=== PATIENT | male | born 1945 | race Caucasian/White ===

== ENCOUNTER 2017-12-03 05:52 | Inpatient (IN) | payer MEDICARE, OTHER, SELFPAY ==
[2017-12-03] VITALS (17 sets, daily range): BP systolic 126–160; BP diastolic 50–79; PULSE 59–94; RESP 11–18; TEMP 36.6–37; O2SAT 94–99; BMI 26.8; BMI 25.9
--- NOTE | 2017-12-03 05:58 | EKG12_ITS ---
Test Reason : NEURO S/SX Blood Pressure : / mmHG Vent. Rate : 085 BPM Atrial Rate : 085 BPM P-R Int : 272 ms QRS Dur : 106 ms QT Int : 344 ms P-R-T Axes : 074 -03 098 degrees QTc Int : 409 ms Sinus rhythm with 1st degree A-V block ST & T wave abnormality, consider lateral ischemia Abnormal ECG Confirmed by ART LECHUGA, INDY ([id number]), fan mail editor ASHLEY ZHU ([id number]) on 12/04/2017 1:21:59 PM Referred By: SANTOSH Confirmed By:INDY CORDOVA MD
--- NOTE | 2017-12-03 05:58 | CT_ITS ---
STUDY: CT BRAIN WITHOUT CONTRAST REASON FOR EXAM: Male, 71 years old. Right-sided weakness RADIATION DOSAGE (If Supplied By Facility): CTDIvol = ( 44.99 ) mGy, DLP = ( 762.36 ) mGycm TECHNIQUE: Transaxial CT imaging of the brain was performed without administration of intravenous contrast material. Individualized dose optimization techniques were used for this CT. COMPARISON: 12/22/2007 FINDINGS: Normal soft tissue structures. Normal calvarium. Normal size ventricles and extra-axial spaces for the patient's age. Stable left temporal encephalomalacia. Normal basal ganglia and thalami. Normal brainstem. Normal cerebellum. There is no intracranial hemorrhage. There are no findings of an acute ischemic infarction. Normal visualized paranasal sinuses. CT/Brain/Head without Contrast IMPRESSION: No CT evidence of acute infarct or hemorrhage. Comment: If there is clinical concern for hyperacute ischemia that is not yet apparent by CT, MRI should be considered if possible. Electronically Signed: Jean Wetzel MD at 7:49 EST Tel , Service support ,
[2017-12-03 06:06] LABS: Bedside Glucose 108 mg/dL (70-110)
[2017-12-03 06:19] LABS: Absolute Lymphocyte Count 2.15 X10^3/ul (0.83-4.51); Absolute Neutrophil Count 2.8 X10^3/uL (2.0-7.7); Basophil# 0.03 X10^3/uL; Basophil% 0.5 % (0-1); Eosinophil# 0.17 X10^3/uL; Hematocrit 42.2 % (40-54); Hemoglobin 14.6 g/dl (13.0-16.5); Lymphocyte # 2.15 X10^3/ul (4.0); Lymphocyte % 37.8 % (19-41); Mean Corp Hgb Conc 34.6 g/gl (32-36); Mean Corpuscular Volume 83.7 fL (80-94); Mean Platelet Vol. 9.5 fl (6.2-12.0); Monocyte# 0.52 X10^3/uL; Monocyte% 9.1 % (0-10); Neutrophil # 2.81 X10^3/uL (2.7-7.7); Neutrophil % 49.4 % (47-70); Platelet Count 257 K/mm3 (150-450); RBC Distribution Width CV 13.5 % (11.6-14.6); RBC Distribution Width SD 40.8 fl (35.1-43.9); Red Blood Count 5.04 M/mm3 (4.6-6.2); White Blood Count 5.7 K/mm3 (4.4-11.0)
[2017-12-03 06:27] LABS: POSITIVE COUNT NO; POSITIVE DIFFERENTIAL NO; POSITIVE MORPHOLOGY NO
[2017-12-03 06:34] LABS: Anion Gap 8 (5-15); BUN 24 mg/dL (7-18); BUN/Creat Ratio 18.3 RATIO (10-20); Calcium,Total 8.8 mg/dL (8.5-10.1); Chloride 105 mmol/L (98-107); Creatinine, Serum 1.31 mg/dL (0.70-1.30); EST Glomerular Filtration Rate 58 mL/min (>60); Est Glom Filt Rate - Afr Amer 70 mL/min (>60); Estimated Creatinine Clearance 54.95 ml/min; Glucose 105 mg/dL (70-110); Potassium 3.3 mmol/L (3.5-5.1); Sodium Level 139 mmol/L (136-145)
[2017-12-03 06:40] LABS: International Normalized Ratio 1.1; Prothrombin Time (Protime)PT. 13.3 SECONDS (11.7-14.9)
[2017-12-03 06:41] LABS: Partial Thromboplast Time 30.9 Seconds (24.1-36.2)
--- NOTE | 2017-12-03 07:19 | ED.DCSUM_ITS ---
- ER Visit Summary Date of Service: 12/03/17 Chief Complaint: Unable to speak History of Present Illness: The patient is a [address] 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 He was last known well at 9 PM yesterday. Woke up this morning and has an obvious expressive aphasia. He also complains of weakness in his right arm and leg. He denies any headache, chest pain, fever, or other complaints. Physical Examination: Vitals: Stable. Afebrile. General: Well-nourished and well-developed. Head: Normocephalic atraumatic. Neck: Supple, no lymphadenopathy. No JVD. Nontender. Cardiovascular: Regular rate and rhythm. No murmurs. Respiratory: No respiratory distress. Clear to auscultation bilaterally. Abdominal: Soft, nontender, nondistended, normal bowel sounds. No guarding, rebound, or peritoneal signs. Back: Nontender. Extremities: Nontender, no edema. Skin: Normal color, no rash. Neurologic: Obvious expressive age aphasia and weakness in his right arm. He also has paresthesias in his right arm. He has an NIH scale of 4. Psych: Normal affect. Test Results: EKG is sinus with first-degree AV block at 85. Troponin is negative. Coags are normal. Chem-7 is marked potassium 3.3, BUN 24, creatinine 1.31. CBC is normal. CT shows no acute disease. Emergency Department Course and Treatment: Patient is not a TPA candidate due to the timeframe of the onset of this. The weakness in his right arm actually improved while he was here. Treatment Plan: Patient will be discussed with the hospitalist and admitted to the hospital for further evaluation and treatment. Disposition: Admitted in improved condition. Impression: 1. CVA. 2. Renal insufficiency. This note was generated with [employer] dictation software. It may contain incorrect words, spelling, and punctuation that were not noted in review of the chart prior to signing ED Disposition - Plan for ED Patient: Chief Complaint: Neuro S/Sx Referrals: Fly Jay MD [Primary Care Provider] -
--- NOTE | 2017-12-03 09:46 | MRI_ITS ---
STUDY: MRA NECK WITHOUT CONTRAST REASON FOR EXAM: Male, 71 years old. CVA, aphasia, rt sided weakness TECHNIQUE: Source images were obtained, MIPs were performed. The study was performed unenhanced. COMPARISON: None. FINDINGS: RIGHT CAROTID ARTERIES: Normal right common carotid artery (CCA). There is mild atherosclerotic plaque formation with minimal narrowing of the right carotid bulb. There is mild atherosclerotic plaque formation of the origin of the right internal carotid artery with less than 50% cross sectional diameter stenosis. Normal visualized cervical portion of the right internal carotid artery. Normal origin of the right external carotid artery (ECA). LEFT CAROTID ARTERIES: Normal left common carotid artery (CCA). There is mild atherosclerotic plaque formation with minimal narrowing of the left carotid bulb. There is mild atherosclerotic plaque formation of the origin of the left internal carotid artery with less than 50% cross sectional diameter stenosis. Normal visualized cervical portion of the left internal carotid artery. Normal origin of the left external carotid artery (ECA). VERTEBRAL ARTERIES: There is antegrade flow within the bilateral vertebral arteries with a small right vertebral artery, and a dominant left vertebral artery. MRI/MRA Neck without Contrast IMPRESSION: No occlusion or significant stenosis. Mild atherosclerotic plaque. Electronically Signed: Adelita Dale MD at 14:43 EST Tel , Service support ,
--- NOTE | 2017-12-03 09:46 | ECHOD_ITS ---
Reason For Study: TIA/STROKE Procedure This was a 2D Doppler, Color Flow transthoracic echocardiogram. Exam performed portable in patient room. Left Ventricle Normal LV size. Left ventricular systolic function is normal. The estimated ejection fraction is 60 %. No regional wall motion abnormalities noted. Right Ventricle Normal RV size. Normal systolic function. Atria The left atrium is moderately enlarged. Normal right atrium. Prominent eustachian valve. Normal atrial septum. Bubble contrast study negative for right to left interatrial shunt. Mitral Valve Normal mitral valve. Mild (1+) eccentric mitral valve insufficiency. Tricuspid Valve Normal tricuspid valve. Mild to moderate (1-2+) tricuspid valve insufficiency. Pulmonary artery systolic pressure is 44 mmHg. Aortic Valve Trisinus/trileaflet aortic valve. Mild focal aortic valve calcification. Pulmonic Valve Normal pulmonic valve. Mild (1+) pulmonic valve insufficiency. Great Vessels Normal aortic root. The pulmonary artery is normal size. Normal inferior vena cava. Pericardium/Pleural No pericardial effusion. Medication Performed a rapid injection of agitated mix of 9 cc saline and 1cc air to assess for atrial septal defect. MMode/2D Measurements & Calculations LVIDd: 4.9 cm IVSd: 1.3 cm LVOT diam: 2.0 cm LVIDs: 3.7 cm LVPWd: 0.84 cm LVOT area: 3.1 cm2 RVDd: 3.9 cm FS: 24.7 % Ao root diam: 3.2 cm LAV(MOD-bp): 92.3 ml LVAd ap4: 43.2 cm2 LA dimension: 4.6 cm LAV(MOD-bp) Indexed: 45.6 ml/m2 EDV(MOD-sp4): 173.1 ml LAV(MOD-sp2): 89.1 ml EDV(sp4-el): 181.3 ml LAV(MOD-sp4): 95.6 ml LVAs ap4: 26.5 cm2 ESV(MOD-sp4): 73.7 ml ESV(sp4-el): 76.1 ml EF(MOD-sp4): 57.4 % EF(sp4-el): 58.1 % SV(MOD-sp4): 99.4 ml SV(sp4-el): 105.3 ml LA A4 area: 26.7 cm2 RA A4 area: 14.1 cm2 Doppler Measurements & Calculations MV E max piter: 82.5 cm/sec Lat Peak E' Piter: 8.1 cm/sec Med Peak E' Piter: 4.8 cm/sec MV A max piter: 81.9 cm/sec E/E' lat: 10.2 E/E' med: 17.3 MV E/A: 1.0 Ao V2 max: 127.6 cm/sec LV V1 max: 110.2 cm/sec PA V2 max: 88.8 cm/sec Ao max P.5 mmHg LV V1 max P.9 mmHg JACKY(V,D): 2.6 cm2 PI dec slope: 167.7 cm/sec2 TR max piter: 310.9 cm/sec TR max P.7 mmHg Interpretation Summary Normal LV size. Left ventricular systolic function is normal. The estimated ejection fraction is 60 %. The left atrium is moderately enlarged. Bubble contrast study negative for right to left interatrial shunt. Mild to moderate (1-2+) tricuspid valve insufficiency. Pulmonary artery systolic pressure is 44 mmHg. Ordering Physician: Jason Cuellar Referring Physician: PRETTY ZHU Performed By: Allison Umana, WILLIE, RVT
--- NOTE | 2017-12-03 09:46 | MRI_ITS ---
STUDY: MRA OF THE HEAD WITHOUT CONTRAST REASON FOR EXAM: Male, 71 years old. CVA, aphasia, rt sided weakness TECHNIQUE: 3-D ezfv-sj-unckko (TOF) imaging was performed with MIPs. The study was performed unenhanced. COMPARISON: None. FINDINGS: Normal bilateral petrous carotid arteries. Normal right cavernous carotid artery with a normal supraclinoid bifurcation. Normal left cavernous carotid artery with a normal supraclinoid bifurcation. There is non-visualization of the right A1 segment of the anterior cerebral arteries consistent with either aplastic development or an occlusion. Normal left A1 segments of the anterior cerebral artery. Normal intact anterior communicating artery (ACOM). Normal bilateral A2 segments of the anterior cerebral arteries. Normal right M1 and M2 segments of the middle cerebral arteries, with a normal M1 bifurcation. Normal left M1 and M2 segments of the middle cerebral arteries, with a normal M1 bifurcation. There is a small right vertebral artery with a dominant left vertebral artery. There is mild atherosclerotic stenosis of the distal left vertebral artery. Normal basilar artery with a normal basilar bifurcation. The visualized bilateral superior cerebellar (SCA) arteries are normal. Normal bilateral P1, P2 and visualized P3 segments of the posterior cerebral arteries. There is no demonstrated aneurysm of the [place]. There is no major vessel occlusion or hemodynamically significant stenosis. There is no demonstrated abnormality of the visualized brain. MRI/MRA Head ONLY without Contrast IMPRESSION: There is no major vessel occlusion or hemodynamically significant stenosis. Mild atherosclerotic stenosis of the distal left vertebral artery. Electronically Signed: Adelita Dale MD at 14:32 EST Tel , Service support ,
--- NOTE | 2017-12-03 10:57 | PCM.CONS.GEN ---
Reason for Consult Date of Consultation: 12/03/17 Reason for Consultation: CVA History of Present Illness: The patient is a 71 year old RIGHT Handed male with historry of cva 7 yrs ago causing similar sx, this am awoke as he usually does at 5am with abnormal gait, right arm weakness and language abnormality now improved but still some right weakness. increased stress at home. no recent illness or medication changes. reports minimal residual language abnormality from stroke 7 yrs ago. Past Medical History Allergies aspirin Allergy (Severe, Verified 12/03/17 09:55) Other PATIENT STATES HAD AN HEART ATTACK. Penicillins [PCN] Allergy (Verified 12/03/17 06:00) Rash Sulfa (Sulfonamide Antibiotics) Allergy (Verified 12/03/17 06:00) Rash Home Medications: Ambulatory Orders Medication Instructions Recorded Amlodipine Besylate [Amlodipine 10 mg PO DAILY 10/14/14 Besylate] Clopidogrel Bisulfate [Clopidogrel] 75 mg PO DAILY 10/14/14 Hydrochlorothiazide 25 mg PO DAILY 10/14/14 [Hydrochlorothiazide] Isosorbide Mononitrate [Isosorbide 60 mg PO DAILY 10/14/14 Mononitrate ER] Losartan Potassium [Cozaar] 100 mg PO DAILY 10/14/14 Metoprolol Succinate [Toprol Xl] 50 mg PO DAILY 12/03/17 Nitroglycerin [Nitrostat] 0.4 mg SL PRN PRN 12/03/17 Lives: Spouse/ Significant Other Smoking Status: Former smoker Tobacco Use: Non-smoker Alcohol: None Drugs: None - *Family History Maternal History Items: No pertinent history Review of Systems Constitutional: Denies: Chills, Fever, Weight Change HEENT: Denies: Head Aches, Sinus Congestion, Sinus Drainage Cardiovascular: Denies: Chest Pain, Palpitations Respiratory: Denies: Cough, Shortness of breath at rest, Sputum production Gastrointestinal: Denies: Abdominal Pain, Nausea, Vomiting Genitourinary: Denies: Dysuria Musculoskeletal: Denies: Joint Pain, Joint Tenderness Skin: Denies: Rash, Wounds Neurological: Denies: Numbness, Tingling, Focal weakness Psychiatric: Denies: Anxiety, Depression, Homicidal Ideations, Suicidal Ideations Hematologic/ Lymphatic: Denies: Easy Bruising, Easy Bleeding - Physical Exam General: Alert, Oriented x3, Cooperative HEENT: Atraumatic, PERRLA, EOMI, Normocephalic Neck: Supple, No JVD, Negative Carotid Bruits Lungs: Clear to auscultation, Normal air movement Cardiovascular: Regular rate, No murmurs Abdomen: Bowel Sounds Present, Soft, Non Tender Extremities: No edema, Capillary Refill Less than 3 Seconds Skin: No rashes, No breakdown Musculoskeletal: No Tenderness to Palpation of Joints or Extremities Neurological: Cranial nerves II-XII grossly intact Psych/Mental Status: Normal Affect, Appropriate Vital Signs Temp Pulse Resp BP Pulse Ox 37.0 C 59 L 18 141/64 H 95 12/03/17 10:00 12/03/17 10:00 12/03/17 10:00 12/03/17 10:00 12/03/17 10:00 Oxygen Delivery Method Room Air Weight: 81.9 kg Body Mass Index (BMI) 25.9 Laboratory Tests Past 24 Hrs 12/03/17 10:00 Troponin I 0.054 H Assessment/Plan cva vs psuedoexacerbation due to metabolic derrangement/stress now appears baseline, await mri consider stress rx, pt defers dc if mri neg
--- NOTE | 2017-12-03 12:20 | MRI_ITS ---
STUDY: MRI BRAIN WITHOUT CONTRAST REASON FOR EXAM: Male, 71 years old. CVA, aphasia, rt sided weakness TECHNIQUE: Standardized multiplanar fat and water weighted pulse sequences were obtained. COMPARISON: December 23, 2007 FINDINGS: There is mild cerebral atrophy with widening of the extra-axial spaces and ventricular dilatation. There are a limited number of small white matter hyperintensities, distributed throughout the deep white matter tracts of the cerebral hemispheres, consistent with mild chronic white matter ischemic changes. Again noted is the left temporal encephalomalacia and gliosis, consistent with prior insult. There is an 8 mm focus of restricted diffusion at the left parietal cortex (diffusion image #20 series 4) there is gyral signal on a routine mammogram, consistent with acute infarction. Normal bilateral basal ganglia. Normal thalami. There is no extra-axial fluid accumulation. Normal flow voids within the major intracranial circulation suggesting patency by spin echo criteria. Normal sella turcica, pituitary gland, infundibular stalk, optic chiasm and hypothalamus. Normal tectal plate and pineal gland. Normal midbrain, david and medulla. Normal cerebellum. Normal basal cisterns. Normal bilateral temporal bones. Normal bilateral internal auditory canals. MRI/Brain without Contrast IMPRESSION: Acute small left parietal cortex infarction. Chronic left temporal infarction. N.B. : The above information has been verbally conveyed by Adelita Dale MD to [facility]- In-Patient RN, on 12/03/2017 15:05:52 (ET). Electronically Signed: Adelita Dale MD at 14:33 EST Tel , Service support , N.B. : The above information has been verbally conveyed by Adelita Dale MD [facility], on 12/03/2017 15:05:52 (ET).
--- NOTE | 2017-12-03 16:12 | PCM.HP.STD ---
Problem List (1) CVA (cerebral vascular accident) Status: Acute (2) CAD (coronary artery disease) Status: Chronic (3) PAD (peripheral artery disease) Status: Chronic (4) HTN (hypertension) Status: Chronic History of Present Illness Date of Admission: 12/03/17 Chief Complaint: Difficulty speaking The patient is a 71 year old M patient awoke this morning and was having expressive aphasia plus weakness in his right arm and leg. Patient was last seen normal at 2100 the night before. Patient was brought in and proceed with stroke workup. Patient's initial NIH score was 4. Patient initial CAT scan that showed no acute process. Subsequently, patient has had an MRI of his brain that showed an acute small left parietal stroke did show also chronic left temporal stroke as well. Additionally patient had some slightly abnormal troponins. Patient does not have any chest pain nor any shortness of breath. [] Past Medical History Past Medical History (Chronic Problems): Chronic Problems CAD (coronary artery disease) (Chronic) PAD (peripheral artery disease) (Chronic) HTN (hypertension) (Chronic) Allergies aspirin Allergy (Severe, Verified 12/03/17 09:55) Other PATIENT STATES HAD AN HEART ATTACK. Penicillins [PCN] Allergy (Verified 12/03/17 06:00) Rash Sulfa (Sulfonamide Antibiotics) Allergy (Verified 12/03/17 06:00) Rash Home Medications: Ambulatory Orders Medication Instructions Recorded Amlodipine Besylate [Amlodipine 10 mg PO DAILY 10/14/14 Besylate] Clopidogrel Bisulfate [Clopidogrel] 75 mg PO DAILY 10/14/14 Hydrochlorothiazide 25 mg PO DAILY 10/14/14 [Hydrochlorothiazide] Isosorbide Mononitrate [Isosorbide 60 mg PO DAILY 10/14/14 Mononitrate ER] Losartan Potassium [Cozaar] 100 mg PO DAILY 10/14/14 Metoprolol Succinate [Toprol Xl] 50 mg PO DAILY 12/03/17 Nitroglycerin [Nitrostat] 0.4 mg SL PRN PRN 12/03/17 Psychiatric History: No pertinent psych hx Lives: Spouse/ Significant Other Smoking Status: Former smoker Tobacco Use: Non-smoker Alcohol: None Drugs: None - *Family History Maternal History Items: Stroke Review of Systems Constitutional: Denies: Chills, Fever, Weight Change Eyes: Denies: Blurred vision, Double vision HEENT: Denies: Head Aches, Sinus Congestion, Sinus Drainage Cardiovascular: Denies: Chest Pain, Palpitations Respiratory: Denies: Cough, Shortness of breath at rest, Sputum production Gastrointestinal: Denies: Abdominal Pain, Nausea, Vomiting Genitourinary: Denies: Dysuria Musculoskeletal: Denies: Joint Pain, Joint Tenderness Neurological: Reports: - - Trouble speaking. Right-sided weakness.. Denies: Blurred vision, Double vision Psychiatric: Denies: Anxiety, Depression, Homicidal Ideations, Suicidal Ideations Hematologic/ Lymphatic: Denies: Hx of blood clot VTE Information - Inpt Only VTE Present on Admission: No VTE Pharm Prophylaxis ordered?: Yes Patient Problems: Active and Suspected Problems CVA (cerebral vascular accident) (Acute) - Physical Exam General: Alert, Oriented x3, Cooperative, No apparent distress, Well developed, Well nourished HEENT: Atraumatic, EOMI, Normocephalic Oral: Moist Mucosa, No Gingival or Mucosal Lesions/ Ulcerations Neck: Negative Carotid Bruits, No Nodes, Thyroid Normal Size and Texture Lungs: Clear to auscultation, Normal air movement, No rhonchi, No wheeze Cardiovascular: Regular rate, Regular Rhythm, Normal S1, Normal S2, No murmurs Abdomen: Bowel Sounds Present, Soft, Non Tender, Non-Distended, No Hepato-splenomegaly Extremities: No edema, No Calf Tenderness Skin: No rashes, No breakdown Musculoskeletal: No Tenderness to Palpation of Joints or Extremities, No Muscle Wasting Neurological: Cranial nerves II-XII grossly intact, Motor Exam 5/5 strength throughout Psych/Mental Status: Normal Affect, Appropriate Vital Signs Temp Pulse Resp BP Pulse Ox 36.6 C 70 16 143/68 H 98 12/03/17 14:50 12/03/17 15:03 12/03/17 14:50 12/03/17 14:50 12/03/17 14:50 Oxygen Delivery Method Room Air Weight: 81.9 kg Body Mass Index (BMI) 25.9 Intake and Output for Last 24 Hours 12/01/17 12/02/17 12/03/17 23:59 23:59 23:59 Intake Total 460 / 460 Balance 460 / 460 Laboratory Tests Past 24 Hrs 12/03/17 12/03/17 10:00 15:00 Troponin I 0.054 H 0.08 H Clinical Impression(s) from Imaging Studies Brain CT 12/03/17 05:58 IMPRESSION: No CT evidence of acute infarct or hemorrhage. Comment: If there is clinical concern for hyperacute ischemia that is not yet apparent by CT, MRI should be considered if possible. Electronically Signed: Jean Wetzel MD at 7:49 EST Tel , Service support , Head MRA 12/03/17 09:46 IMPRESSION: There is no major vessel occlusion or hemodynamically significant stenosis. Mild atherosclerotic stenosis of the distal left vertebral artery. Electronically Signed: Adelita Dale MD at 14:32 EST Tel , Service support , Neck MRA 12/03/17 09:46 IMPRESSION: No occlusion or significant stenosis. Mild atherosclerotic plaque. Electronically Signed: Adelita Dale MD at 14:43 EST Tel , Service support , Brain MRI 12/03/17 12:20 IMPRESSION: Acute small left parietal cortex infarction. Chronic left temporal infarction. N.B. : The above information has been verbally conveyed by Adelita Dale MD [facility], on 12/03/2017 15:05:52 (ET). Electronically Signed: Adelita Dale MD at 14:33 EST Tel , Service support , N.B. : The above information has been verbally conveyed by Adelita Dale MD [facility], on 12/03/2017 15:05:52 (ET). Assessment/Plan Active and Suspected Problems CVA (cerebral vascular accident) (Acute) 1. Acute left parietal stroke Continue with medical management with Plavix also add high intensity statin. Patient has an allergy to aspirin. Echocardiogram was unremarkable for any shunt. Follow-up further recommendations from neurology, skilled occupational therapy. 2. Abnormal troponins Slightly elevated. Patient being treated for a stroke with Plavix and statin. Patient with known coronary artery disease We will perform a chemical stress test to further evaluate if any acute issues are ongoing. 3. DVT prophylaxis with Lovenox Discussed with patient's family at bedside. Code Visit Inpatient E&M: 78319 Init Hosp L3
--- NOTE | 2017-12-03 16:22 | HP.PCM_ITS ---
Problem List (1) CVA (cerebral vascular accident) Status: Acute (2) CAD (coronary artery disease) Status: Chronic (3) PAD (peripheral artery disease) Status: Chronic (4) HTN (hypertension) Status: Chronic History of Present Illness Date of Admission: 12/03/17 Chief Complaint: Difficulty speaking The patient is a 71 year old M patient awoke this morning and was having expressive aphasia plus weakness in his right arm and leg. Patient was last seen normal at 2100 the night before. Patient was brought in and proceed with stroke workup. Patient's initial NIH score was 4. Patient initial CAT scan that showed no acute process. Subsequently, patient has had an MRI of his brain that showed an acute small left parietal stroke did show also chronic left temporal stroke as well. Additionally patient had some slightly abnormal troponins. Patient does not have any chest pain nor any shortness of breath. [ ] Past Medical History Past Medical History (Chronic Problems): Chronic Problems CAD (coronary artery disease) (Chronic) PAD (peripheral artery disease) (Chronic) HTN (hypertension) (Chronic) Allergies aspirin Allergy (Severe, Verified 12/03/17 09:55) Other PATIENT STATES HAD AN HEART ATTACK. Penicillins [PCN] Allergy (Verified 12/03/17 06:00) Rash Sulfa (Sulfonamide Antibiotics) Allergy (Verified 12/03/17 06:00) Rash Home Medications: Ambulatory Orders Medication Instructions Recorded Amlodipine Besylate [Amlodipine 10 mg PO DAILY 10/14/14 Besylate] Clopidogrel Bisulfate [Clopidogrel] 75 mg PO DAILY 10/14/14 Hydrochlorothiazide 25 mg PO DAILY 10/14/14 [Hydrochlorothiazide] Isosorbide Mononitrate [Isosorbide 60 mg PO DAILY 10/14/14 Mononitrate ER] Losartan Potassium [Cozaar] 100 mg PO DAILY 10/14/14 Metoprolol Succinate [Toprol Xl] 50 mg PO DAILY 12/03/17 Nitroglycerin [Nitrostat] 0.4 mg SL PRN PRN 12/03/17 Psychiatric History: No pertinent psych hx Lives: Spouse/ Significant Other Smoking Status: Former smoker Tobacco Use: Non-smoker Alcohol: None Drugs: None - *Family History Maternal History Items: Stroke Review of Systems Constitutional: Denies: Chills, Fever, Weight Change Eyes: Denies: Blurred vision, Double vision HEENT: Denies: Head Aches, Sinus Congestion, Sinus Drainage Cardiovascular: Denies: Chest Pain, Palpitations Respiratory: Denies: Cough, Shortness of breath at rest, Sputum production Gastrointestinal: Denies: Abdominal Pain, Nausea, Vomiting Genitourinary: Denies: Dysuria Musculoskeletal: Denies: Joint Pain, Joint Tenderness Neurological: Reports: - - Trouble speaking. Right-sided weakness.. Denies: Blurred vision, Double vision Psychiatric: Denies: Anxiety, Depression, Homicidal Ideations, Suicidal Ideations Hematologic/ Lymphatic: Denies: Hx of blood clot VTE Information - Inpt Only VTE Present on Admission: No VTE Pharm Prophylaxis ordered?: Yes Patient Problems: Active and Suspected Problems CVA (cerebral vascular accident) (Acute) - Physical Exam General: Alert, Oriented x3, Cooperative, No apparent distress, Well developed, Well nourished HEENT: Atraumatic, EOMI, Normocephalic Oral: Moist Mucosa, No Gingival or Mucosal Lesions/ Ulcerations Neck: Negative Carotid Bruits, No Nodes, Thyroid Normal Size and Texture Lungs: Clear to auscultation, Normal air movement, No rhonchi, No wheeze Cardiovascular: Regular rate, Regular Rhythm, Normal S1, Normal S2, No murmurs Abdomen: Bowel Sounds Present, Soft, Non Tender, Non-Distended, No Hepato- splenomegaly Extremities: No edema, No Calf Tenderness Skin: No rashes, No breakdown Musculoskeletal: No Tenderness to Palpation of Joints or Extremities, No Muscle Wasting Neurological: Cranial nerves II-XII grossly intact, Motor Exam 5/5 strength throughout Psych/Mental Status: Normal Affect, Appropriate Vital Signs Temp Pulse Resp BP Pulse Ox 36.6 C 70 16 143/68 H 98 12/03/17 14:50 12/03/17 15:03 12/03/17 14:50 12/03/17 14:50 12/03/17 14:50 Oxygen Delivery Method Room Air Weight: 81.9 kg Body Mass Index (BMI) 25.9 Intake and Output for Last 24 Hours 12/01/17 12/02/17 12/03/17 23:59 23:59 23:59 Intake Total 460 / 460 Balance 460 / 460 Laboratory Tests Past 24 Hrs 12/03/17 12/03/17 10:00 15:00 Troponin I 0.054 H 0.08 H Clinical Impression(s) from Imaging Studies Brain CT 12/03/17 05:58 IMPRESSION: No CT evidence of acute infarct or hemorrhage. Comment: If there is clinical concern for hyperacute ischemia that is not yet apparent by CT, MRI should be considered if possible. Electronically Signed: Jean Wetzel MD at 7:49 EST Tel , Service support , Head MRA 12/03/17 09:46 IMPRESSION: There is no major vessel occlusion or hemodynamically significant stenosis. Mild atherosclerotic stenosis of the distal left vertebral artery. Electronically Signed: Adelita Dale MD at 14:32 EST Tel , Service support , Neck MRA 12/03/17 09:46 IMPRESSION: No occlusion or significant stenosis. Mild atherosclerotic plaque. Electronically Signed: Adelita Dale MD at 14:43 EST Tel , Service support , Brain MRI 12/03/17 12:20 IMPRESSION: Acute small left parietal cortex infarction. Chronic left temporal infarction. N.B. : The above information has been verbally conveyed by Adelita Dale [facility], on 12/03/2017 15:05:52 (ET). Electronically Signed: Adelita Dale MD at 14:33 EST Tel , Service support , N.B. : The above information has been verbally conveyed by Adelita Dale MD [facility], on 12/03/2017 15:05:52 (ET). Assessment/Plan Active and Suspected Problems CVA (cerebral vascular accident) (Acute) 1. Acute left parietal stroke Continue with medical management with Plavix also add high intensity statin. Patient has an allergy to aspirin. Echocardiogram was unremarkable for any shunt. Follow-up further recommendations from neurology, skilled occupational therapy. 2. Abnormal troponins Slightly elevated. Patient being treated for a stroke with Plavix and statin. Patient with known coronary artery disease We will perform a chemical stress test to further evaluate if any acute issues are ongoing. 3. DVT prophylaxis with Lovenox Discussed with patient's family at bedside. Code Visit Inpatient E&M: 38444 Init Hosp L3
[2017-12-03] MEDS: Metoprolol(XL)Succ 50 MG Tablet PO (16:27)
[2017-12-03] MEDS: Clopidogrel Bisulfate 75 MG Tablet PO (16:27)
[2017-12-04] VITALS (8 sets, daily range): BP systolic 121–146; BP diastolic 57–88; PULSE 55–73; RESP 16; TEMP 36.6–36.8; O2SAT 96–98; BMI 25.9
[2017-12-04 05:21] LABS: Hematocrit 41.4 % (40-54); Hemoglobin 14.3 g/dl (13.0-16.5); Mean Corp Hgb Conc 34.5 g/gl (32-36); Mean Corpuscular Hgb 28.9 pg (27.0-32.0); Mean Corpuscular Volume 83.6 fL (80-94); Mean Platelet Vol. 9.6 fl (6.2-12.0); Platelet Count 263 K/mm3 (150-450); RBC Distribution Width CV 13.5 % (11.6-14.6); RBC Distribution Width SD 40.9 fl (35.1-43.9); Red Blood Count 4.95 M/mm3 (4.6-6.2); White Blood Count 7.2 K/mm3 (4.4-11.0)
[2017-12-04 05:25] LABS: Scan Indicated on CBC? Y/N NO
[2017-12-04 05:28] LABS: International Normalized Ratio 1.1; Prothrombin Time (Protime)PT. 13.6 SECONDS (11.7-14.9)
[2017-12-04 05:29] LABS: Partial Thromboplast Time 32.2 Seconds (24.1-36.2)
[2017-12-04 05:38] LABS: Cholesterol 153 mg/dL (200); High Density Lipoprotein 36 mg/dL; Triglycerides 118 mg/dL; Very Low Density Lipoprotein 24 mg/dL (5-40)
[2017-12-04 05:45] LABS: Anion Gap 7 (5-15); BUN 22 mg/dL (7-18); BUN/Creat Ratio 18.8 RATIO (10-20); Calcium,Total 8.6 mg/dL (8.5-10.1); Chloride 104 mmol/L (98-107); Creatinine, Serum 1.17 mg/dL (0.70-1.30); EST Glomerular Filtration Rate 66 mL/min (>60); Est Glom Filt Rate - Afr Amer 79 mL/min (>60); Estimated Creatinine Clearance 61.53 ml/min; Glucose 97 mg/dL (70-110); Potassium 3.8 mmol/L (3.5-5.1); Sodium Level 138 mmol/L (136-145)
[2017-12-04] MEDS: Losartan Potassium 100 MG Tablet PO (08:27)
[2017-12-04] MEDS: amLODIPine 10 MG Tablet PO (08:27)
--- NOTE | 2017-12-04 09:02 | PN_ITS ---
Patient Problems: Active and Suspected Problems CVA (cerebral vascular accident) (Acute) Subjective: No further events. Patient otherwise feeling well. Vitals/I&O's: Vital Signs Temp Pulse Resp BP Pulse Ox 36.7 C 63 16 146/73 H 98 12/04/17 06:10 12/04/17 06:10 12/04/17 06:10 12/04/17 06:10 12/04/17 06:10 Oxygen Delivery Method Room Air Body Mass Index (BMI) 25.9 Intake and Output for Last 24 Hours 12/02/17 12/03/17 12/04/17 23:59 23:59 23:59 Intake Total 120 / 120 Balance 120 / 120 General: Alert, Cooperative, No apparent distress, Well developed, Well nourished HEENT: Atraumatic, Normocephalic Extremities: No edema, No Calf Tenderness Skin: No rashes, No breakdown Musculoskeletal: No Tenderness to Palpation of Joints or Extremities, No Muscle Wasting Neurological: Motor Exam 5/5 strength throughout, Gait narrow based and stable Psych/Mental Status: Normal Affect, Appropriate Laboratory Results 12/04/17 05:05: Triglycerides 118, Cholesterol 153, LDL Cholesterol 93, VLDL Cholesterol 24, HDL Cholesterol 36 L 12/04/17 05:05: WBC 7.2, RBC 4.95, Hgb 14.3, Hct 41.4, MCV 83.6, MCH 28.9, MCHC 34.5, RDW 13.5, RDW Differential 40.9, Plt Count 263, MPV 9.6 12/04/17 05:05: PT 13.6, INR 1.1, APTT 32.2 12/04/17 05:05: Sodium 138, Potassium 3.8, Chloride 104, Carbon Dioxide 27.0, Anion Gap 7, BUN 22 H, Creatinine 1.17, Estim Creat Clear Calc 61.53, Est GFR ( MDRD) Af Amer 79, Est GFR (MDRD) Non-Af 66, BUN/Creatinine Ratio 18.8, Glucose 97, Calcium 8.6 Current Medications Acetaminophen (Tylenol) 650 mg PO Q6H PRN PRN PRN Reason: Mild Pain (1-3)/Temp > 100.7 F Amlodipine Besylate (Norvasc) 10 mg PO DAILY@1700 MICAELA Last Admin: 12/04/17 08:27 Dose: 10 mg Clopidogrel Bisulfate (Plavix) 75 mg PO DAILY@1700 MICAELA Last Admin: 12/03/17 16:27 Dose: 75 mg Enoxaparin Sodium (Lovenox) 40 mg SC DAILY@1000 MICAELA Last Admin: 12/04/17 08:28 Dose: Not Given Hydrochlorothiazide (Hctz) 25 mg PO DAILY@1700 MICAELA Last Admin: 12/03/17 16:17 Dose: Not Given Isosorbide Mononitrate (Imdur) 60 mg PO DAILY@1700 MICAELA Last Admin: 12/03/17 16:18 Dose: Not Given Losartan Potassium (Cozaar) 100 mg PO DAILY@1700 MICAELA Last Admin: 12/04/17 08:27 Dose: 100 mg Magnesium Hydroxide (Milk Of Magnesia) 30 ml PO DAILY PRN PRN Reason: Constipation Metoprolol Succinate (Toprol Xl (Beta Johana)) 50 mg PO DAILY@1700 MICAELA Last Admin: 12/03/17 16:27 Dose: 50 mg Sodium Chloride () 5 - 30 ml IV UD PRN PRN Reason: SALINE FLUSH Assessment/Plan Active and Suspected Problems CVA (cerebral vascular accident) (Acute) 1. Acute left parietal stroke Continue with medical management with Plavix also add high intensity statin. Patient has an allergy to aspirin. Echocardiogram was unremarkable for any shunt. 2. Abnormal troponins Slightly elevated. Patient being treated for a stroke with Plavix and statin. Patient with known coronary artery disease We will perform a chemical stress test to further evaluate if any acute issues are ongoing. 3. DVT prophylaxis with Lovenox If a stress test is negative, then would discharge patient home.
--- NOTE | 2017-12-04 11:53 | STRESSREP ---
Stress Test Report Pharmacologic myocardial perfusion stress test. 71-year-old man with a history of recent cerebrovascular accident and abnormal cardiac enzymes. Stress protocol: EKG demonstrates sinus bradycardia with a rate of 55 bpm. 0.4 mg of regadenoson was infused per usual protocol followed by rapid intravenous saline flush injection continuous EKG monitoring was performed. The maximum heart rate attained was 90 bpm which was 59% of the maximum predicted heart rate. The maximum workload attained was 1 metabolic equivalent. The patient maintained sinus rhythm throughout the recording. At rest there were no ST or T-wave changes noted to suggest abnormal flow reserve at peak infusion no ST or T-wave changes were noted suggest abnormal flow reserve. The resting blood pressure was 150/82 with a final blood pressure 132/64. Cardial perfusion protocol: 12.0 mCi of technetium 99m sestamibi was injected at rest. 0.4 mg of regadenoson was infused per usual protocol peak infusion 34.8 mCi of technetium 99m sestamibi was injected. Stress images were obtained. Stress and rest images were reconstructed and compared in the short axis vertical long and horizontal long axis. Gated images were also obtained. Perfusion SPECT analysis Review of the stress images demonstrate normal uptake noted in the septum and anterior wall. The distal lateral wall and mid lateral wall appear to have normal perfusion. The basal inferolateral wall has a perfusion defect is present on the stress images. There is also an apical defect present on the stress images. On the resting images the apical defect is persistent the inferior wall defect is minimally improved in the basal lateral wall defect appears to be mildly improved. There may be a mild amount of basal/lateral darlin-infarct ischemia. Gated SPECT analysis. Gated ejection fraction is noted to be 53% Conclusion: Pharmacologic myocardial perfusion stress test with evidence of basal inferior infarct with basal and mid lateral darlin-infarct ischemia. Previous apical infarct noted Preserved ejection fraction
--- NOTE | 2017-12-04 12:32 | STRESSREP_ITS ---
Stress Test Report Pharmacologic myocardial perfusion stress test. 71-year-old man with a history of recent cerebrovascular accident and abnormal cardiac enzymes. Stress protocol: EKG demonstrates sinus bradycardia with a rate of 55 bpm. 0.4 mg of regadenoson was infused per usual protocol followed by rapid intravenous saline flush injection continuous EKG monitoring was performed. The maximum heart rate attained was 90 bpm which was 59% of the maximum predicted heart rate. The maximum workload attained was 1 metabolic equivalent. The patient maintained sinus rhythm throughout the recording. At rest there were no ST or T -wave changes noted to suggest abnormal flow reserve at peak infusion no ST or T -wave changes were noted suggest abnormal flow reserve. The resting blood pressure was 150/82 with a final blood pressure 132/64. Cardial perfusion protocol: 12.0 mCi of technetium 99m sestamibi was injected at rest. 0.4 mg of regadenoson was infused per usual protocol peak infusion 34.8 mCi of technetium 99m sestamibi was injected. Stress images were obtained. Stress and rest images were reconstructed and compared in the short axis vertical long and horizontal long axis. Gated images were also obtained. Perfusion SPECT analysis Review of the stress images demonstrate normal uptake noted in the septum and anterior wall. The distal lateral wall and mid lateral wall appear to have normal perfusion. The basal inferolateral wall has a perfusion defect is present on the stress images. There is also an apical defect present on the stress images. On the resting images the apical defect is persistent the inferior wall defect is minimally improved in the basal lateral wall defect appears to be mildly improved. There may be a mild amount of basal/lateral darlin -infarct ischemia. Gated SPECT analysis. Gated ejection fraction is noted to be 53% Conclusion: Pharmacologic myocardial perfusion stress test with evidence of basal inferior infarct with basal and mid lateral darlin-infarct ischemia. Previous apical infarct noted Preserved ejection fraction
--- NOTE | 2017-12-04 13:03 | PCM.DC ---
- Discharge Diagnoses Current Active Problems: Current Active and Chronic Problems CVA (cerebral vascular accident) (Acute) CAD (coronary artery disease) (Chronic) PAD (peripheral artery disease) (Chronic) HTN (hypertension) (Chronic) You will use the following diet at home:: Cardiac Your food should be the consistency of: Regular Your liquids should be the consistency of: Regular/Thin Discharge Activity: Return to Normal Activity Call your doctor if you observe: Fever of 101 or Higher, Chest pain, - - Unilateral weakness. Trouble speaking. Allergies/Adverse Reactions: Allergies aspirin Allergy (Severe, Verified 12/03/17 09:55) Other PATIENT STATES HAD AN HEART ATTACK. Penicillins [PCN] Allergy (Verified 12/03/17 06:00) Rash Sulfa (Sulfonamide Antibiotics) Allergy (Verified 12/03/17 06:00) Rash Medications to take at Discharge Amlodipine Besylate 10 mg PO DAILY 10/14/14 Clopidogrel Bisulfate [Clopidogrel] 75 mg PO DAILY 10/14/14 Hydrochlorothiazide 25 mg PO DAILY 10/14/14 Isosorbide Mononitrate [Isosorbide Mononitrate ER] 60 mg PO DAILY 10/14/14 Losartan Potassium [Cozaar] 100 mg PO DAILY 10/14/14 Metoprolol Succinate [Toprol Xl] 50 mg PO DAILY 12/03/17 Nitroglycerin [Nitrostat] 0.4 mg SL PRN PRN 12/03/17 Acetaminophen [Tylenol Tablet] 650 mg PO Q6H PRN PRN tablet 12/04/17 Atorvastatin Calcium [Lipitor] 40 mg PO QHS #30 tab 12/04/17 The following prescriptions were given: Atorvastatin Calcium [Lipitor] 40 mg PO QHS #30 tab Primary Care Physician: Fly Jay MD [Primary Care Provider] - Within 2 Weeks Please Follow Up With: Duong Camp MD When: 1 month Please Follow Up With: Mohsen Ruiz MD When: 1-2 months Proposed Discharge Date: 12/04/17
--- NOTE | 2017-12-04 13:05 | PCM.DC.SUM ---
Discharge Date and Diagnosis - Problem List Patient Problems: Active and Suspected Problems CVA (cerebral vascular accident) (Acute) Date of Admission: 12/03/17 Date of Discharge: 12/04/17 - Primary Discharge Diagnosis Active and Suspected Problems CVA (cerebral vascular accident) (Acute) - Secondary Discharge Diagnosis Chronic Problems CAD (coronary artery disease) (Chronic) PAD (peripheral artery disease) (Chronic) HTN (hypertension) (Chronic) Hospital Course and Treatment Imaging Results: Clinical Impression(s) from Imaging Studies Brain CT 12/03/17 05:58 IMPRESSION: No CT evidence of acute infarct or hemorrhage. Comment: If there is clinical concern for hyperacute ischemia that is not yet apparent by CT, MRI should be considered if possible. Electronically Signed: Jean Wetzel MD at 7:49 EST Tel , Service support , Head MRA 12/03/17 09:46 IMPRESSION: There is no major vessel occlusion or hemodynamically significant stenosis. Mild atherosclerotic stenosis of the distal left vertebral artery. Electronically Signed: Adelita Dale MD at 14:32 EST Tel , Service support , Neck MRA 12/03/17 09:46 IMPRESSION: No occlusion or significant stenosis. Mild atherosclerotic plaque. Electronically Signed: Adelita Dale MD at 14:43 EST Tel , Service support , Brain MRI 12/03/17 12:20 IMPRESSION: Acute small left parietal cortex infarction. Chronic left temporal infarction. N.B. : The above information has been verbally conveyed by Adelita Dale MD to [facility]- In-Patient RN, on 12/03/2017 15:05:52 (ET). Electronically Signed: Adelita Dale MD at 14:33 EST Tel , Service support , N.B. : The above information has been verbally conveyed by Adelita Dale [facility], on 12/03/2017 15:05:52 (ET). Camp Operations: None Procedures: 2-D Echocardiogram - Ejection fraction 60%. Pulmonary artery systolic pressure of 44 mmHg., Stress test - Pharmacologic myocardial perfusion stress test with evidence of basal inferior infarct with basal and mid lateral darlin-infarct ischemia. Previous apical infarct noted Preserved ejection fraction Summary of Care Provided: The patient is a 71 year old M who presents after waking with right arm and leg weakness and expressive aphasia. Initial NIH score in the emergency room was 4. Initial CAT scan was negative. Patient did undergo an MRI that showed an acute small left parietal stroke. Patient had an echocardiogram that was normal with the exception of some moderate pulmonary hypertension. Patient was already on Plavix, has an allergy to aspirin. High intensity statin was added. Patient was seen by neurology. Patient's symptoms did resolve and has been fine since then. When patient came in patient did have some mild elevation of troponins of 0.054 and got as high as 0.08. Patient did have a stress test that showed basal inferior infarct with basal and mid lateral darlin-infarct ischemia. Patient has known coronary artery disease and additionally, patient was never having chest pain prior to arrival. It is my feeling the patient likely had just troponin leak with the acute distress of this new stroke and patient with known coronary artery disease. 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 Patient is already medically optimized with beta gil, angiotensin receptor gil and a nitrite. Patient will follow up with neurology and cardiology as outpatient. [] Discharge Diet: Low fat/ Low Cholesterol Discharge Activity: Return to Normal Activity Call your doctor if you observe: Fever of 101 or Higher, Chest pain, - - Unilateral weakness. Trouble speaking. Home Medications: Medications to take at Discharge Amlodipine Besylate 10 mg PO DAILY 10/14/14 Clopidogrel Bisulfate [Clopidogrel] 75 mg PO DAILY 10/14/14 Hydrochlorothiazide 25 mg PO DAILY 10/14/14 Isosorbide Mononitrate [Isosorbide Mononitrate ER] 60 mg PO DAILY 10/14/14 Losartan Potassium [Cozaar] 100 mg PO DAILY 10/14/14 Metoprolol Succinate [Toprol Xl] 50 mg PO DAILY 12/03/17 Nitroglycerin [Nitrostat] 0.4 mg SL PRN PRN 12/03/17 Acetaminophen [Tylenol Tablet] 650 mg PO Q6H PRN PRN tablet 12/04/17 Atorvastatin Calcium [Lipitor] 40 mg PO QHS #30 tab 12/04/17 Following Prescrptions Were Given to Patient: Atorvastatin Calcium [Lipitor] 40 mg PO QHS #30 tab Primary Care Physician: Fly Jay MD [Primary Care Provider] - Within 2 Weeks Please Follow Up With: Duong Camp MD When: 1 month Please Follow Up With: Mohsen Ruiz MD When: 1-2 months Disposition: Home Minutes spent on discharge:: 32 Patient Condition:: Good Meaningful Use Info Meaningful Use Diagnoses (Choose all that apply): Ischemic CVA - CVA Therapy Assessed for PT,OT and/or ST?: Yes - Ischemic Stroke Antithrombotic order at d/c?: Yes Dx of Atrial fib/flutter?: No Statins at discharge?: Yes Primary Dx Acute Ischemic CVA?: Yes IV tPA ordered during stay?: No Reason IV t-PA not ordered: Procedure not Indicated Code Visit Inpatient E&M: 17501 Disch Hosp
--- NOTE | 2017-12-04 13:11 | DS.PCM_ITS ---
Discharge Date and Diagnosis - Problem List Patient Problems: Active and Suspected Problems CVA (cerebral vascular accident) (Acute) Date of Admission: 12/03/17 Date of Discharge: 12/04/17 - Primary Discharge Diagnosis Active and Suspected Problems CVA (cerebral vascular accident) (Acute) - Secondary Discharge Diagnosis Chronic Problems CAD (coronary artery disease) (Chronic) PAD (peripheral artery disease) (Chronic) HTN (hypertension) (Chronic) Hospital Course and Treatment Imaging Results: Clinical Impression(s) from Imaging Studies Brain CT 12/03/17 05:58 IMPRESSION: No CT evidence of acute infarct or hemorrhage. Comment: If there is clinical concern for hyperacute ischemia that is not yet apparent by CT, MRI should be considered if possible. Electronically Signed: Jean Wetzel MD at 7:49 EST Tel , Service support , Head MRA 12/03/17 09:46 IMPRESSION: There is no major vessel occlusion or hemodynamically significant stenosis. Mild atherosclerotic stenosis of the distal left vertebral artery. Electronically Signed: Adelita Dale MD at 14:32 EST Tel , Service support , Neck MRA 12/03/17 09:46 IMPRESSION: No occlusion or significant stenosis. Mild atherosclerotic plaque. Electronically Signed: Adelita Dale MD at 14:43 EST Tel , Service support , Brain MRI 12/03/17 12:20 IMPRESSION: Acute small left parietal cortex infarction. Chronic left temporal infarction. N.B. : The above information has been verbally conveyed by Adelita Dale MD to Vida Phillip [facility]- In-Patient RN, on 12/03/2017 15:05:52 (ET). Electronically Signed: Adelita Dale MD at 14:33 EST Tel , Service support , N.B. : The above information has been verbally [facility] on 12/03/2017 15:05:52 (ET). Camp Operations: None Procedures: 2-D Echocardiogram - Ejection fraction 60%. Pulmonary artery systolic pressure of 44 mmHg., Stress test - Pharmacologic myocardial perfusion stress test with evidence of basal inferior infarct with basal and mid lateral darlin-infarct ischemia. Previous apical infarct noted Preserved ejection fraction Summary of Care Provided: The patient is a 71 year old M who presents after waking with right arm and leg weakness and expressive aphasia. Initial NIH score in the emergency room was 4. Initial CAT scan was negative. Patient did undergo an MRI that showed an acute small left parietal stroke. Patient had an echocardiogram that was normal with the exception of some moderate pulmonary hypertension. Patient was already on Plavix, has an allergy to aspirin. High intensity statin was added. Patient was seen by neurology. Patient's symptoms did resolve and has been fine since then. When patient came in patient did have some mild elevation of troponins of 0.054 and got as high as 0.08. Patient did have a stress test that showed basal inferior infarct with basal and mid lateral darlin-infarct ischemia. Patient has known coronary artery disease and additionally, patient was never having chest pain prior to arrival. It is my feeling the patient likely had just troponin leak with the acute distress of this new stroke and patient with known coronary artery disease. Recommend patient follow-up with his licensed master social worker for further evaluation. Patient is already medically optimized with beta gil, angiotensin receptor gil and a nitrite. Patient will follow up with neurology and cardiology as outpatient. [] Discharge Diet: Low fat/ Low Cholesterol Discharge Activity: Return to Normal Activity Call your doctor if you observe: Fever of 101 or Higher, Chest pain, - - Unilateral weakness. Trouble speaking. Home Medications: Medications to take at Discharge Amlodipine Besylate 10 mg PO DAILY 10/14/14 Clopidogrel Bisulfate [Clopidogrel] 75 mg PO DAILY 10/14/14 Hydrochlorothiazide 25 mg PO DAILY 10/14/14 Isosorbide Mononitrate [Isosorbide Mononitrate ER] 60 mg PO DAILY 10/14/14 Losartan Potassium [Cozaar] 100 mg PO DAILY 10/14/14 Metoprolol Succinate [Toprol Xl] 50 mg PO DAILY 12/03/17 Nitroglycerin [Nitrostat] 0.4 mg SL PRN PRN 12/03/17 Acetaminophen [Tylenol Tablet] 650 mg PO Q6H PRN PRN tablet 12/04/17 Atorvastatin Calcium [Lipitor] 40 mg PO QHS #30 tab 12/04/17 Following Prescrptions Were Given to Patient: Atorvastatin Calcium [Lipitor] 40 mg PO QHS #30 tab Primary Care Physician: Fly Jay MD [Primary Care Provider] - Within 2 Weeks Please Follow Up With: Duong Camp MD When: 1 month Please Follow Up With: Mohsen Ruiz MD When: 1-2 months Disposition: Home Minutes spent on discharge:: 32 Patient Condition:: Good Meaningful Use Info Meaningful Use Diagnoses (Choose all that apply): Ischemic CVA - CVA Therapy Assessed for PT,OT and/or ST?: Yes - Ischemic Stroke Antithrombotic order at d/c?: Yes Dx of Atrial fib/flutter?: No Statins at discharge?: Yes Primary Dx Acute Ischemic CVA?: Yes IV tPA ordered during stay?: No Reason IV t-PA not ordered: Procedure not Indicated Code Visit Inpatient E&M: 02186 Disch Hosp
--- NOTE | 2017-12-04 14:35 | CASEMGMT ---
Face to Face with patient for initial transition planning/care coordination assessment. AGUILAR REDDY introduced self and role at [facility], pt voices understanding and consents to assessment at this time. Pt sitting up in chair in no distress at this time. Pt A/O x4 at this time and answers all questions appropriately at this time. Care providers, pharmacy, and demographics verified. See attached link. Pt voices no further concerns/needs at this time. Advised pt to ask for CM if any further questions/concerns/needs arise, voices understanding. PLAN: [place] AGUILAR REDDY
== END 2017-12-04 16:06 | disposition home or self-care (01) | DRG 65 ==
LOC: ED 08:11 → PCU 08:50
PROVIDERS: Emergency Provider Emergency Medicine; Family Provider Family Medicine; PCP Family Medicine
DX: I63.9 Cerebral infarction, unspecified (principal); G81.91 Hemiplegia, unspecified affecting right dominant side; I27.20 Pulmonary hypertension, unspecified; R47.01 Aphasia; I69.328 Other speech and language deficits following cerebral infarction; I10 Essential (primary) hypertension; I25.10 Atherosclerotic heart disease of native coronary artery without angina pectoris; I73.9 Peripheral vascular disease, unspecified; R29.704 NIHSS score 4; Z87.891 Personal history of nicotine dependence; Z88.6 Allergy status to analgesic agent; R79.89 Other specified abnormal findings of blood chemistry; Z79.899 Other long term (current) drug therapy
CPT/HCPCS: 36415; 70450; 70544; 70547; 70551; 78452; 80048; 80061; 82962; 84484; 85025; 85027; 85610; 85730; 92523; 93005; 93017; 93306; 97166; 99284; A9500; Q9957; A4216; J2785

== ENCOUNTER → 2018-06-14 08:32 | Outpatient (CLI) | payer MEDICARE, OTHER, SELFPAY ==
[2018-06-14 09:34] LABS: Anion Gap 9 (5-15); BUN 25 mg/dL (7-18); BUN/Creat Ratio 20.8 RATIO (10-20); Calcium,Total 9.3 mg/dL (8.5-10.1); Chloride 104 mmol/L (98-107); EST Glomerular Filtration Rate 64 mL/min (>60); Est Glom Filt Rate - Afr Amer 77 mL/min (>60); Glucose 92 mg/dL (74-106); PSA,Total- Diagnostic 1.59 ng/mL (0.0-4.0); Potassium 4.2 mmol/L (3.5-5.1); Sodium Level 142 mmol/L (136-145)
== END ==
PROVIDERS: Family Provider Family Medicine; PCP Family Medicine; Visit Provider Family Medicine
DX: I10 Essential (primary) hypertension (principal); R97.20 Elevated prostate specific antigen [PSA]
CPT/HCPCS: 36415; 80048; 84153

== ENCOUNTER → 2018-11-04 07:20 | Outpatient (CLI) | payer MEDICARE, OTHER, SELFPAY ==
--- NOTE | 2018-11-04 07:33 | EKG12_ITS ---
Test Reason : PREOP Blood Pressure : / mmHG Vent. Rate : 056 BPM Atrial Rate : 056 BPM P-R Int : 208 ms QRS Dur : 088 ms QT Int : 402 ms P-R-T Axes : 047 003 092 degrees QTc Int : 387 ms Sinus bradycardia Nonspecific ST and T wave abnormality Abnormal ECG Confirmed by ART LECHUGA, INDY ([id number]), clinical editor ASHLEY ZHU ([id number]) on 11/05/2018 9:17:38 AM Referred By: Kofi August Confirmed By:INDY CORDOVA MD
[2018-11-04 09:01] LABS: Hematocrit 42.8 % (40-54); Hemoglobin 14.1 g/dl (13.0-16.5); Mean Corp Hgb Conc 32.9 g/gl (32-36); Mean Corpuscular Hgb 28.7 pg (27.0-32.0); Mean Corpuscular Volume 87.2 fL (80-94); Mean Platelet Vol. 9.5 fl (6.2-12.0); Platelet Count 277 K/mm3 (150-450); RBC Distribution Width CV 13.2 % (11.6-14.6); RBC Distribution Width SD 42.3 fl (35.1-43.9); Red Blood Count 4.91 M/mm3 (4.6-6.2); White Blood Count 6.1 K/mm3 (4.4-11.0)
[2018-11-04 09:03] LABS: Scan Indicated on CBC? Y/N NO
[2018-11-04 09:29] LABS: BUN 26 mg/dL (7-18); Creatinine, Serum 1.17 mg/dL (0.70-1.30); EST Glomerular Filtration Rate 65 mL/min (>60); Glucose 83 mg/dL (74-106)
[2018-11-04 09:30] LABS: Anion Gap 6 (5-15); BUN/Creat Ratio 22.2 RATIO (10-20); Calcium,Total 9.2 mg/dL (8.5-10.1); Chloride 105 mmol/L (98-107); Est Glom Filt Rate - Afr Amer 79 mL/min (>60); Potassium 3.9 mmol/L (3.5-5.1); Sodium Level 143 mmol/L (136-145)
--- OUTSIDE RECORDS SUMMARY | 2018-12-21 00:45 | XMS RPT_ITS ---
:1945 Author Organization OHIP Care Team Providers Name Role Phone Kofi August Attending Unavailable Kofi August Referring Unavailable Fly Zhu Primary Care Unavailable Joseph, Mohsen Attending Unavailable Kofi August Referring Unavailable Malu Ontiveros Attending Unavailable Joseph, [place] Attending Unavailable Fly Zhu Referring Unavailable Fly Zhu Primary Care Unavailable Joseph Mohsen Attending Unavailable Fly Zhu Referring Unavailable Fly Zhu Attending Unavailable Fly Zhu Referring Unavailable Fly Zhu Primary Care Unavailable Felicity Naqvi Attending Unavailable Fly Zhu Referring Unavailable PROBLEMS PROBLEMS DATE TYPE CONDITION / CODE ATTENDING STATUS SOURCE 11/17/2018 Unknown R00.1 - Bradycardia, Joseph, [place] Active [place] unspecified / Community R00.1(ICD-10) Hospital Repository 11/17/2018 Unknown R94.31 - Abnormal Joseph, Mohsen Active [place] electro[facility] Community [ECG] [EKG] / Hospital R94.31(ICD-10) Repository PROCEDURES PROCEDURES No Procedure Records FoundRESULTS RESULTS 12 LEAD ELECTROCARDIOGRAM Observed: 11/05/2018 Status: F Source: [place] 9:18 AM [facility] REPOSITORY [facility] Cardiovascular Services [address] [place] [address] 12 Lead EKG 11/04/18 0743 MR#: [id number] Acct: [id number] Name: STEVE MOHR Rep #: [id number] : 1945 72 From: Mohsen Ruiz MD Attending Dr: Kofi Zambrano Status: REG CLI Ordering Dr: Kofi August PA-C Date: 11/04/18 Location: LAB Sex: M C Admitted: Test Reason : PREOP Blood Pressure : / mmHG Vent. Rate : 056 BPM Atrial Rate : 056 BPM P-R Int : 208 ms QRS Dur : 088 ms QT Int : 402 ms P-R-T Axes : 047 003 092 degrees QTc Int : 387 ms Sinus bradycardia Nonspecific ST and T wave abnormality Abnormal ECG Confirmed by JOSEPH LECHUGA, MOHSEN ([id number]), proposal editor ASHLEY ZHU ([id number]) on 11/05/2018 9:17:38 AM Referred By: Kofi August Confirmed By:MOHSEN RUIZ MD 11/05/18 0917 Date Mohsen Ruiz MD CC: Fly Zhu MD; Kofi CRUZ Signed CBC-COMPLETE BLOOD CNT Collected: 11/04/2018 Status: F Source: [place] NO DIFF 7:28 AM [facility] REPOSITORY TYPE CODE TESTS RESULT OUT OF RANGE REFERENCE UNITS LAB L100.1000 4.4-11.0 K/mm3 Normal WBC 6.1 LAB L100.1200 4.6-6.2 M/mm3 Normal RBC 4.91 LAB L100.1300 13.0-16.5 g/dl Normal HGB 14.1 LAB L100.1400 40-54 % Normal HCT 42.8 LAB L100.1500 80-94 fL Normal MCV 87.2 LAB L100.1600 27.0-32.0 pg Normal MCH 28.7 LAB L100.1700 32-36 g/gl Normal MCHC 32.9 LAB L100.1810 11.6-14.6 % Normal RDW CV 13.2 LAB L100.1820 35.1-43.9 fl Normal RDW SD 42.3 LAB L100.1900 150-450 K/mm3 Normal PLT 277 LAB L100.2000 6.2-12.0 fl Normal MPV 9.5 Performed By: #### L100.0500 #### [facility] [address] [place], [place], [address] BASIC METABOLIC Collected: 11/04/2018 Status: F Source: [place] PROFILE (BMP) 7:28 AM [facility] REPOSITORY TYPE CODE TESTS RESULT OUT OF RANGE REFERENCE UNITS LAB L501.0100 74-106 mg/dL Normal GLU 83 Result Comment: Please note revised GLUCOSE reference range effective 2017. LAB L501.1000 7-18 mg/dL High BUN 26 LAB L501.1100 0.70-1.30 mg/dL Normal CREAT,SERUM 1.17 Result Comment: The validity of the calculated GFR AND GFRAA in patients over 70 years has not been determined. Clinical correlation is essential. LAB L501.1110 >60 mL/min Normal EST GFR 65 Result Comment: Non- GFR Calc LAB L501.1115 >60 mL/min Normal EST GFR - AA 79 Result Comment: GFR Calc LAB L501.1300 10-20 RATIO High BUN/CRE 22.2 LAB L501.2200 8.5-10.1 mg/dL CA Normal 9.2 LAB L501.5300 136-145 mmol/L NA Normal 143 LAB L501.5600 3.5-5.1 mmol/L K Normal 3.9 LAB L501.5900 98-107 mmol/L CL Normal 105 LAB L501.6100 21.0-32.0 mmol/L Normal CO2 32.0 LAB L501.6200 5-15 Normal GAP 6 Performed By: #### L500.2500 #### [facility] [address] [place], [place], [address] CARDIOLOGY VISIT Observed: 08/05/2018 Status: F Source: [place] REPORT 10:36 AM [facility] REPOSITORY [facility] [address] [place] [address] OFFICE VISIT Date of Service: 07/30/18 MR#: [id number] Acct: [id number] Name: STEVE MOHR Rep #: [id number] : 1945 Provider: Felicity Naqvi Age/Sex: 72/M Location: [facility] Status: Signed HPI HPI Details: STEVE MOHR, is a 72 M who presents to the office today for a cardiovascular follow-up. He has a history of coronary artery disease with bypass surgery in 1997. He had an RODRIGUEZ to the LAD, right radial graft to the RCA, SVG to the OM. In 2006 and stenting to his circumflex. Heart catheterization in 2012 demonstrated severe three-vessel disease. Moderate to severe left main, 70% stenosis of the left main to the proximal circumflex. Occlusion of the proximal LAD. 70% stenosis of the proximal left circumflex. 80% stenosis of the proximal first obtuse marginal. 80% stenosis of the proximal to mid RCA. Nonfunctioning SVG to the first obtuse marginal. Patent RODRIGUEZ to the LAD. Patent SVG to first diagonal of the LAD. Patent right radial to the RCA. Ejection fraction was 45%. From a cardiac standpoint, patient is doing well. He does not have any chest discomfort/heaviness/tightness. His exercise tolerance is stable for his age. He does not have any worsening symptoms of shortness of breath. He denies any PND. He does not have any orthopnea. He does not have any symptoms of congestive heart failure. He does not have any palpitations that he is aware of. He does not have any lightheadedness or dizziness. He does not have any near-syncope or syncope. He does not have any lower extremity edema. He does have claudication. This is not new. Intake Vital Signs07/30/18 Height 5 ft 7.5 in 07/30/18 Weight: 190 lb 07/30/18 Body Mass Index (BMI) 29.3 07/30/18 Blood Pressure 142/68 07/30/18 Blood Pressure Location Lt brachial Intake Visit Reasons: 6 M [employer] Required: No Accompanied by: None Is patient in pain?: No Allergies aspirin Allergy (Severe, Verified 07/30/18 13:13) Other Penicillins [PCN] Allergy (Verified 07/30/18 13:13) Rash Sulfa (Sulfonamide Antibiotics) Allergy (Verified 07/30/18 13:13) Rash Medications Metoprolol Succinate [Toprol Xl] 50 mg PO DAILY 12/03/17 [History Confirmed 07/30/18] Nitroglycerin [Nitrostat] 0.4 mg SL PRN PRN 12/03/17 [History Confirmed 07/30/18] Acetaminophen [Tylenol Tablet] 650 mg PO Q6H PRN PRN tab 12/04/17 [Rx Confirmed 07/30/18] magnesium oxide 500 mg tablet 500 mg PO QDAY tab 01/27/18 [History Confirmed 07/30/18] multivitamin tablet 1 tab PO QDAY 01/27/18 [History Confirmed 07/30/18] clopidogrel 75 mg tablet 75 mg PO DAILY #90 tab 05/06/18 [Rx Confirmed 07/30/18] hydrochlorothiazide 25 mg tablet 25 mg PO DAILY #90 tab 05/06/18 [Rx Confirmed 07/30/18] isosorbide mononitrate ER 60 mg tablet,extended release 24 hr 60 mg PO DAILY #90 tab 05/06/18 [Rx Confirmed 07/30/18] amlodipine 10 mg tablet 10 mg PO DAILY #90 tab 05/19/18 [Rx Confirmed 07/30/18] losartan 100 mg tablet 100 mg PO QDAY #90 tab 05/19/18 [Rx Confirmed 07/30/18] Ejection fraction %: 50 to 54 PFSH Medical History Old myocardial infarction (Chronic) Non-rheumatic tricuspid valve insufficiency (Chronic) Secondary pulmonary arterial hypertension (Chronic) Hyperlipidemia (Chronic) Hypertension (Chronic) Atherosclerosis of coronary artery of ig[place]ug[place] heart without angina pectoris (Chronic) PVD (peripheral vascular disease) (Chronic) Claudication in peripheral vascular disease (Chronic) Bilateral carotid artery stenosis (Chronic) CVA (cerebral vascular accident) (Chronic 12/03/17) Surgical History H/O coronary artery bypass surgery (Chronic 12/19/97) History of coronary artery stent placement (Chronic 11/22/07) History of left heart catheterization (Chronic 08/10/13) History of arthroscopic knee surgery (Resolved) History of shoulder surgery (Resolved) History of tonsillectomy (Resolved) Status post trigger finger release (Resolved) Family History Father Myocardial infarction CAD (coronary artery disease) Mother Diabetes Hypertension Cancer Social History Smoking Status: Former smoker how long ago did patient quit smokin years ago alcohol intake: never caffeine: Yes Type: carbonated beverages Number of servings: 1 ROS Const Const: Negative for weakness, fatigue, fever(s) or headache(s) Eyes Eyes: Negative for blind spots, loss of peripheral vision or transient loss of vision ENT ENT: Negative for headache(s), dizziness, tinnitus or Nosebleed/epistaxis Cardio Chest Pain: No Palpitations: No Edema: None Muscle aches with walking: None Resp Respiratory: Negative for SOB with activity, SOB at rest, SOB orthopnea\SOB lying down or Cough GI GI: Negative nausea, vomiting, heartburn or vomiting blood/hematemesis : Negative for hematuria Musc Musc: Negative for muscle aches/ myalgia Neuro Neuro: Negative for weakness, headache(s), dizziness, near syncope, syncope, lightheadedness or orthostatic symptoms Charles Hematologic/Lymphatic: Negative for easy bleeding Endo Endo: Negative for fatigue Cardiology Exam Const Appearance: cooperative, healthy appearing, well developed, well groomed and no acute distress Nutritional Appearance: well nourished and average body habitus Orientation: alert, awake and oriented x3 Head Head: normal to inspection, normocephalic and atraumatic Ears: hearing grossly normal bilaterally and external ears normal Nose: external nose normal, nasal mucous membranes and turbinates normal, nares normal, septum normal, no nasal discharge Face and Sinus: face symmetric Mouth: oral mucosae normal, tongue normal, oropharynx normal and moist mucous membranes Teeth and gingiva: dentition normal Throat: posterior oropharynx normal, tonsils normal and uvula midline Eyes General: appearance normal, both eyes and all related structures Eyelids: eyelids normal Conjunctivae: conjunctivae normal Pupils: PERRL, normal by confrontation and accommodation normal EOM: EOM intact bilaterally Neck Neck: normal visual inspection, trachea midline and no JVD JVD: +5 Carotids: normal carotid upstroke and bounding pulses Chest Chest inspection: normal inspection of the chest, symmetric chest movement and normal respiratory effort Auscultation: Bilateral: Clear to Auscultation Cardio Palpation: normal PMI Rate: regular rate Rhythm: regular rhythm Heart sounds: S1 normal, S2 normal and normal, physiologic split S2; negative rub, gallop or murmur GI GI: normal to inspection, soft, no hepatosplenomegaly and bowel sounds present Neuro General: alert, awake, oriented x3, no focal sensory deficit, gait normal and moves all extremities Skin Skin: no rashes or lesions noted Extremities Pulses: Normal: Right Femoral Pulse, Left Femoral Pulse, Right Dorsalis Pedis Pulse, Left Dorsalis Pedis Pulse, Right Posterior Tibial Pulse, Left Posterior Tibial Pulse, Right Radial Pulse, Left Radial Pulse Lower Extremity Edema: None: Bilateral Musculoskel Musculoskeletal: No joint tenderness Psych Psychological: normal affect Supplemental Info Stress test in 2018 demonstrated Pharmacologic myocardial perfusion stress test with evidence of basal inferior infarct with basal and mid lateral darlin- infarct ischemia. Previous apical infarct noted Preserved ejection fraction Echocardiogram 2018 demonstrated Normal LV size. Left ventricular systolic function is normal. The estimated ejection fraction is 60 %. The left atrium is moderately enlarged. Bubble contrast study negative for right to left interatrial shunt. Mild to moderate (1-2+) tricuspid valve insufficiency. Pulmonary artery systolic pressure is 44 mmHg. Assessment AND Plan 1. Atherosclerosis of igiug[place] coronary artery of ig[place]ug[place] heart without angina pectoris I25.10 GKW-VFJ-Nbut Cx 2.5 x 24 mm TAXUS Stent 11/22/07 CABG x 4 RODRIGUEZ Sequential-LAD and D1, Left Radial Graft-RCA, SVG-OM1 12/19/97 Plan - ANTHONY Seth Stable, from a cardiac standpoint patient does not have any symptoms of angina. We recommend that they continue with current aggressive medical management and risk factor modification. 2. Essential hypertension I10 Plan - ANTHONY Seth Blood pressure is well controlled on current medications, we do not recommend any changes at this time. 3. Pure hypercholesterolemia E78.00; E78.0 Plan - ANTHONY Seth Patient has been intolerant to statins. He continues to try to monitor this with his diet. Recent lipid profile in November 2017 demonstrates total cholesterol 133, HDL 36, LDL 93. 4. PVD (peripheral vascular disease) I73.9 Occluded left SFA Plan - ANTHONY Seth Patient does have known vascular disease. He is overdue for follow-up with his vascular surgeon. Encouraged follow-up with this. Plan Detail Additional Comments - ANTHONY Seth The above patient was discussed with Dr. Ruiz, he agrees with plan of care. Thank you for allowing us to participate in patient's plan of care, if you have any questions please do not hesitate to call. This note was generated using a voice recognition system and there may be incorrect words, spelling or punctuation errors that were not noted when reviewing the office note prior to saving. Follow Up 6 Months (ARGON TESTER) Coding Level of Care Code Off vis,est,level 3 Diagnoses Atherosclerosis of ig[place]ug[place] coronary artery of ig[place] heart without angina pectoris I25.10 Coronary Disease-Associated Artery/Lesion type: [place] artery Essential hypertension I10 Hypertension type: essential hypertension Pure hypercholesterolemia E78.00; E78.0 Hyperlipidemia type: pure hypercholesterolemia PVD (peripheral vascular disease) I73.9 Coding Level of Care Code Off vis,est,level 3 Diagnoses Atherosclerosis of ig[place]ug[place] coronary artery of [place] heart without angina pectoris I25.10 Coronary Disease-Associated Artery/Lesion type: [place] artery Essential hypertension I10 Hypertension type: essential hypertension Pure hypercholesterolemia E78.00; E78.0 Hyperlipidemia type: pure hypercholesterolemia PVD (peripheral vascular disease) I73.9 07/30/18 1619 <Electronically signed by Felicity Naqvi PA> Date Felicity CRUZ 08/05/18 1036<Electronically signed by Mohsen Ruiz MD> Cosigner Signature: Date (if applicable) Mohsen Ruiz MD CC: Fly Zhu MD BASIC METABOLIC Collected: 06/14/2018 Status: F Source: [place] PROFILE (BMP) 8:38 AM [facility] REPOSITORY Order Comment: Order Date: 03/18/18 Order Info: 0667-1 - BMP Order Info: 0783-1 - PSAD TYPE CODE TESTS RESULT OUT OF RANGE REFERENCE UNITS LAB L501.0100 74-106 mg/dL Normal GLU 92 Result Comment: Please note revised GLUCOSE reference range effective 2017. LAB L501.1000 7-18 mg/dL High BUN 25 LAB L501.1100 0.70-1.30 mg/dL Normal CREAT,SERUM 1.20 Result Comment: The validity of the calculated GFR AND GFRAA in patients over 70 years has not been determined. Clinical correlation is essential. LAB L501.1110 >60 mL/min Normal EST GFR 64 Result Comment: Non- GFR Calc LAB L501.1115 >60 mL/min Normal EST GFR - AA 77 Result Comment: GFR Calc LAB L501.1300 10-20 RATIO High BUN/CRE 20.8 LAB L501.2200 8.5-10.1 mg/dL CA Normal 9.3 LAB L501.5300 136-145 mmol/L NA Normal 142 LAB L501.5600 3.5-5.1 mmol/L K Normal 4.2 LAB L501.5900 98-107 mmol/L CL Normal 104 LAB L501.6100 21.0-32.0 mmol/L Normal CO2 29.0 LAB L501.6200 5-15 Normal GAP 9 Performed By: #### L500.2500, L501.9940 #### [facility] [address] [place], [place], [address] PSA,TOTAL- DIAGNOSTIC Collected: 06/14/2018 Status: F Source: [place] 8:38 AM [facility] REPOSITORY Order Comment: Order Date: 03/18/18 Order Info: 0667-1 - BMP Order Info: 0783-1 - PSAD TYPE CODE TESTS RESULT OUT OF RANGE REFERENCE UNITS LAB L501.9940 0.0-4.0 ng/mL PSA, Normal DIAGNOSTIC 1.59 Result Comment: This test was performed using the TPSA assay method for the [employer] chemistry system. Values obtained with different assay methods cannot be used interchangably. When changing PSA assays in the course of monitoring a patient, additional sequential testing should be carried out to confirm baseline values. Performed By: #### L500.2500, L501.9940 #### [facility] [address] [place], [address] CARDIOLOGY VISIT Observed: 01/27/2018 Status: F Source: [place] REPORT 5:24 PM [facility] REPOSITORY [facility] [address] [place] [address] OFFICE VISIT Date of Service: 01/27/18 MR#: [id number] Acct: [id number] Name: STEVE MOHR Rep #: [id number] : 1945 Provider: Mohsen Ruiz MD Age/Sex: 72/M Location: [facility] Status: Signed HPI HPI Chief Complaint: Follow-up visits. Details: STEVE MOHR, is a 72 M who presents to the office today for a follow-up visit. He is a gentleman with a history of coronary artery disease status post previous bypass surgery 1997. He had a left internal mammary artery to left anterior descending artery and right radial graft to the right coronary artery a saphenous vein graft obtuse marginal branch. His last heart catheterization in 2012 demonstrated severe triple- vessel disease with moderate to severe left main disease 70% stenosis of the distal left main occlusion of the proximal LAD and sequential 80% stenosis of the right coronary artery. The saphenous vein graft to the obtuse marginal branch was nonfunctional by the RODRIGUEZ to the LAD was patent the saphenous vein graft to first diagonal branch was patent and the radial artery to the right coronary artery was patent. He is done well since then except that he had a cerebrovascular accident a few months ago. He has not had any chest pain or shortness breath or paroxysmal nocturnal dyspnea pedal edema no neck arm or jaw discomfort suggest angina. As you know he did not tolerate the statin. He has been keeping meticulous checks of blood pressures at home and they have been all in the normotensive range. His physical exam today demonstrates clear lung mcdaniels regular rate and rhythm and no pedal edema. Intake Vital Signs01/27/18 Height 5 ft 7.5 in 01/27/18 Weight: 191 lb 01/27/18 Body Mass Index (BMI) 29.5 01/27/18 Blood Pressure 180/70 01/27/18 Pulse Rate 62 Intake Visit Reasons: DC PCU 12-05-17 Allergies aspirin Allergy (Severe, Verified 01/27/18 11:32) Other Penicillins [PCN] Allergy (Verified 01/27/18 11:32) Rash Sulfa (Sulfonamide Antibiotics) Allergy (Verified 01/27/18 11:32) Rash Medications Amlodipine Besylate 10 mg PO DAILY 10/14/14 [History Confirmed 01/27/18] Clopidogrel Bisulfate [Clopidogrel] 75 mg PO DAILY 10/14/14 [History Confirmed 01/27/18] Hydrochlorothiazide 25 mg PO DAILY 10/14/14 [History Confirmed 01/27/18] Isosorbide Mononitrate [Isosorbide Mononitrate ER] 60 mg PO DAILY 10/14/14 [History Confirmed 01/27/18] Metoprolol Succinate [Toprol Xl] 50 mg PO DAILY 12/03/17 [History Confirmed 01/27/18] Nitroglycerin [Nitrostat] 0.4 mg SL PRN PRN 12/03/17 [History Confirmed 01/27/18] Acetaminophen [Tylenol Tablet] 650 mg PO Q6H PRN PRN tab 12/04/17 [Rx Confirmed 01/27/18] coenzyme Q10 100 mg capsule 100 mg PO QDAY 01/27/18 [History Confirmed 01/27/18] losartan 100 mg tablet 100 mg PO QDAY 01/27/18 [History Confirmed 01/27/18] magnesium oxide 500 mg tablet 500 mg PO QDAY tab 01/27/18 [History Confirmed 01/27/18] multivitamin tablet 1 tab PO QDAY 01/27/18 [History Confirmed 01/27/18] PFSH Medical History Old myocardial infarction (Chronic) Non-rheumatic tricuspid valve insufficiency (Chronic) Secondary pulmonary arterial hypertension (Chronic) Hyperlipidemia (Chronic) Hypertension (Chronic) Atherosclerosis of coronary artery of ig[place]ug[place] heart without angina pectoris (Chronic) PVD (peripheral vascular disease) (Chronic) Claudication in peripheral vascular disease (Chronic) Bilateral carotid artery stenosis (Chronic) CVA (cerebral vascular accident) (Acute 12/03/17) Surgical History H/O coronary artery bypass surgery (Chronic 12/19/97) History of coronary artery stent placement (Chronic 11/22/07) History of left heart catheterization (Chronic 08/10/13) Family History Father Myocardial infarction CAD (coronary artery disease) Mother Diabetes Hypertension Social History Smoking Status: Former smoker ROS Const Const: Positive for weakness (Right arm numbness and weakness on occasion) and fatigue; negative for difficulty sleeping, frequent falls, headache(s) or excessive sweating Eyes Eyes: Negative for loss of peripheral vision, transient loss of vision, blurry vision or double vision ENT ENT: Negative for Nosebleed/epistaxis, balance problems, dizziness or headache(s) Cardio Chest Pain: No Edema: None Muscle aches with walking: None Resp Respiratory: Negative for SOB with activity, SOB at rest, SOB orthopnea\SOB lying down or paroxysmal nocturnal dyspnea GI GI: Negative nausea or heartburn : Negative for hematuria Musc Musc: Negative for muscle aches/ myalgia, muscle weakness, joint pain or balance problems Skin Skin: Negative non-healing lesions, unusual bruising or rash Neuro Neuro: Positive for weakness (Right arm numbness and weakness on occasion); negative for blurry vision, dizziness, lightheadedness, orthostatic symptoms, double vision, frequent falls or headache(s) Charles Hematologic/Lymphatic: Negative for easy bruising Endo Endo: Positive for fatigue; negative for excessive sweating or increased thirst/drinking Psych Psych: Negative for anxiety or depression Allergy Allergy/Immunology: Negative for hives, Negative for rash Cardiology Exam Const Appearance: cooperative, healthy appearing, well developed, well groomed and no acute distress Nutritional Appearance: well nourished and average body habitus Orientation: alert, awake and oriented x3 Head Head: normal to inspection, normocephalic and atraumatic Ears: hearing grossly normal bilaterally and external ears normal Nose: external nose normal, nasal mucous membranes and turbinates normal, nares normal, septum normal, no nasal discharge Face and Sinus: face symmetric Mouth: oral mucosae normal, tongue normal, oropharynx normal and moist mucous membranes Teeth and gingiva: dentition normal Throat: posterior oropharynx normal, tonsils normal and uvula midline Eyes General: appearance normal, both eyes and all related structures Eyelids: eyelids normal Conjunctivae: conjunctivae normal Pupils: PERRL, normal by confrontation and accommodation normal EOM: EOM intact bilaterally Neck Neck: normal visual inspection, trachea midline and no JVD JVD: +5 Carotids: normal carotid upstroke and bounding pulses Chest Chest inspection: normal inspection of the chest, symmetric chest movement and normal respiratory effort Auscultation: Bilateral: Clear to Auscultation Cardio Palpation: normal PMI Rate: regular rate Rhythm: regular rhythm Heart sounds: S1 normal, S2 normal and normal, physiologic split S2; negative rub, gallop or murmur GI GI: normal to inspection, soft, no hepatosplenomegaly and bowel sounds present Neuro General: alert, awake, oriented x3, no focal sensory deficit, gait normal and moves all extremities Skin Skin: no rashes or lesions noted Extremities Pulses: Normal: Right Radial Pulse, Left Dorsalis Pedis Pulse, Left Femoral Pulse, Left Posterior Tibial Pulse, Left Radial Pulse, Right Dorsalis Pedis Pulse, Right Femoral Pulse, Right Posterior Tibial Pulse Lower Extremity Edema: None: Bilateral Musculoskel Musculoskeletal: No joint tenderness Psych Psychological: normal affect Assessment AND Plan 1. H/O coronary artery bypass surgery Z95.1 CABG x 4 RODRIGUEZ Sequential-LAD and D1, Left Radial Graft-RCA, SVG-OM1 12/19/97 Plan He appears to be doing well with respect to the above with no episodes of angina and my plan is to keep him on the same medications without making any changes. 2. Hypertension I10 Plan His blood pressures which have been keeping at home have been meticulous and though he is elevated here they have been normal at home and I would not suggest that we make any changes. 3. Hyperlipidemia E78.5 Plan His most recent lipid profile is excellent with a total cholesterol 153, LDL of 93 and HDL of 36. As you know he has not been able to tolerate the statins and so we will keep him off this at this time. 4. PVD (peripheral vascular disease) I73.9 Occluded left SFA Plan He will continue follow-up with the vascular surgeon regarding his occluded femoral artery as well as his carotid disease. Thank you for allowing me to participate in his care. Plan Detail Other Medications Discontinued: Follow Up 6 (mmm) Coding Level of Care Code Off vis,est,level 3 Diagnoses H/O coronary artery bypass surgery Z95.1 Hypertension I10 Hyperlipidemia E78.5 PVD (peripheral vascular disease) I73.9 Coding Level of Care Code Off vis,est,level 3 Diagnoses H/O coronary artery bypass surgery Z95.1 Hypertension I10 Hyperlipidemia E78.5 PVD (peripheral vascular disease) I73.9 01/27/18 3951 <Electronically signed by Mohsen Ruiz MD> Date Mohsen Calix Signature: Date (if applicable) CC: Fly Zhu MD ALLERGIES ALLERGIES DATE TYPE / CODE NAME / CODE REACTION SEVERITY SOURCE 07/30/2018 Drug Penicillins/F Rash Unknown [facility] Allergy/4160 [id number](RXN Hospital 37779(SNOMED ORM) Repository CT) 07/30/2018 Drug Sulfa Rash Unknown [facility] Allergy/4160 (Sulfonamide Hospital 09472(SNOMED Antibiotics)/ Repository CT) [id number](RX NORM) 07/30/2018 Drug aspirin/F0060 Other SV [facility] Allergy/4160 89404(RXNORM) Hospital 21916(SNOMED Repository CT) ENCOUNTERS ENCOUNTERS ADMIT/DISCHARGE ACCOUNT ADMITTING ENCOUNTER LOCATION SOURCE NUMBER CLASS 11/04/2018 [id number] Ambulatory [place] 7 [facility] ing:LAB Repository 11/04/2018 [id number] Ambulatory BMSBuilding:W [place] 5 [facility] Repository 07/30/2018/ [id number] Ambulatory BMSBuilding:B [place] 8 3 [facility] Repository 06/14/2018 [id number] [place] 0 [facility] ing:LAB Repository 02/09/2018 [id number] Ambulatory BMSBuilding:B [place] 8 [facility] Repository 01/27/2018/ [id number] Ambulatory BMSBuilding:B [place] 8 6 [facility] Repository 01/26/2018 [id number] Ambulatory BMSBuilding:B [place] 4 [facility] Repository PAYERS PAYERS ENCOUNTER GUARANTOR PAYER SUBSCRIBER SOURCE 11/04/2018 STEVE Ng Primary STEVE W [place] [id number] Insurance:[facility] PART A [facility] [id number] Number: Repository [address]Ixk: 330 [id number] [phone] (HP) Date:2018-11-04 11/04/2018 Secondary STEVE W [place] Insurance:AARPPolicy LUTSCHDOB: Community Number: [id number] Hospital [id number] Repository Date:9707-54-25[address], [place] [address]FK: 11/04/2018 Tertiary NOT GIVENUNK [place] Insurance:SELF [facility]Y [facility] Number: Effective Repository Date:2018-11-04 11/04/2018 STEVE W Primary STEVE W [place] [id number] Insurance:MEDICARE LUTSCHDOB: Community JENSEN PART A [facility] [id number] [facility] [place] Number: Repository [id number]: 330 [id number] [phone] (HP) Date:2018-11-04 11/04/2018 Secondary STEVE W [place] Insurance:AARPPolicy LUTSCHDOB: Community Number: [id number] Hospital [id number] Repository Date:8933-88-76[address], [place] [address]IN: 11/04/2018 Tertiary NOT GIVENUNK [place] Insurance:SELF PAY [facility] Number: Effective Repository Date:2018-11-04 07/30/2018 STEVE W Primary STEVE W [place] [id number] Insurance:MEDICARE LUTSCHDOB: Community JENSEN PART A [facility] [id number] [facility] [place] Number: Repository [id number]: 330 [id number] [phone] () Date:2018-01-27 07/30/2018 Secondary STEVE W [place] Insurance:AARPPolicy LUTSCHDOB: Community Number: [id number] Hospital [id number] Repository Date:4587-16-86TP [address], [place] [address]BR: 07/30/2018 Tertiary NOT GIVENUNK [place] Insurance:SELF PAY [facility] Number: Effective Repository Date:2018-07-30 06/14/2018 STEVE W Primary STEVE W [place] [id number] Insurance:MEDICARE LUTSCHDOB: Community JENSEN PART A [facility] [id number] [facility] [place] Number: Repository [id number]: 330 [id number] [phone] () Date:2018-06-14 06/14/2018 Secondary STEVE W [place] Insurance:AARPPolicy LUTSCHDOB: Community Number: [id number] Hospital [id number] Repository Date:1034-00-12NF [address] [address]DK: 06/14/2018 Tertiary NOT GIVENUNK [place] Insurance:SELF PAY [facility] Number: Effective Repository Date:2018-06-14 02/09/2018 Steve W Primary NOT GIVENUNK [place] [id number] Insurance:SELF PAY [place] Number: Effective Repository [id number]: [phone]) Date:2017-11-01 [phone] () 01/27/2018 STEVE W Primary STEVE W [place] [id number] Insurance:MEDICARE LUTSCHDOB: Community JENSEN PART A [facility] [id number] [facility] [place] Number: Repository [id number]: 330 [id number] [phone] () Date:2017-12-04 01/27/2018 Secondary STEVE W [place] Insurance:AARPPolicy LUTSCHDOB: Community Number: [id number] Hospital [id number] Repository Date:2105-67-39VS [address] [address]DY: 01/27/2018 Tertiary NOT GIVENUNK [place] Insurance:SELF PAY [facility] Number: Effective Repository Date:2017-12-04 01/26/2018 Steve W Primary Steve W [place] [id number] Insurance:MEDICARE LutschDOB: [facility]ly [facility] PART A [facility] [id number] [facility] [place] Number: Repository [address]Yxa: [phone] [id number] [phone] () Date:2018-01-26 01/26/2018 Secondary Steve [place] [facility] LutschDOB: Community Number: [id number] Hospital [id number] Repository Date:7516-81-33TB [address], [place] [address]DO: 01/26/2018 Tertiary NOT GIVENMEENA [place] Insurance:SELF PAY [facility] Number: Effective Repository Date:2018-01-26
== END ==
PROVIDERS: Family Provider Family Medicine; PCP Family Medicine; Referring Provider Physician Assistant; Visit Provider Physician Assistant
DX: Z01.818 Encounter for other preprocedural examination (principal); Z01.810 Encounter for preprocedural cardiovascular examination
CPT/HCPCS: 36415; 80048; 85027; 93005

== ENCOUNTER → 2019-03-04 14:00 | Outpatient (CLI) | payer MEDICARE, OTHER, SELFPAY ==
[2019-02-15 14:07] VITALS: BMI 30.4
--- NOTE | 2019-03-04 14:25 | EKG12_ITS ---
Test Reason : PREOP Blood Pressure : / mmHG Vent. Rate : 058 BPM Atrial Rate : 058 BPM P-R Int : 212 ms QRS Dur : 090 ms QT Int : 400 ms P-R-T Axes : 041 001 076 degrees QTc Int : 392 ms Sinus bradycardia with 1st degree A-V block Nonspecific T wave abnormality Abnormal ECG When compared with ECG of 04-NOV-2018 07:43, No significant change was found Confirmed by ART LECHUGA, INDY ([id number]), assistant production editor ASHLEY ZHU ([id number]) on 03/07/2019 2:52:03 PM Referred By: Kofi August Confirmed By:INDY CORDOVA MD
[2019-03-04 14:43] LABS: Hematocrit 38.9 % (40-54); Hemoglobin 13.1 g/dl (13.0-16.5); Mean Corp Hgb Conc 33.7 g/gl (32-36); Mean Corpuscular Volume 86.1 fL (80-94); Mean Platelet Vol. 9.2 fl (6.2-12.0); Platelet Count 269 K/mm3 (150-450); RBC Distribution Width CV 12.6 % (11.6-14.6); RBC Distribution Width SD 39.7 fl (35.1-43.9); Red Blood Count 4.52 M/mm3 (4.6-6.2); White Blood Count 6.4 K/mm3 (4.4-11.0)
[2019-03-04 14:49] LABS: Scan Indicated on CBC? Y/N NO
[2019-03-04 15:25] LABS: Anion Gap 7 (5-15); BUN 30 mg/dL (7-18); BUN/Creat Ratio 25.9 RATIO (10-20); Chloride 108 mmol/L (98-107); Creatinine, Serum 1.16 mg/dL (0.70-1.30); EST Glomerular Filtration Rate 66 mL/min (>60); Est Glom Filt Rate - Afr Amer 80 mL/min (>60); Glucose 91 mg/dL (74-106); Potassium 3.7 mmol/L (3.5-5.1); Sodium Level 140 mmol/L (136-145)
== END ==
PROVIDERS: Family Provider Family Medicine; PCP Family Medicine; Referring Provider Physician Assistant; Visit Provider Physician Assistant
DX: Z01.810 Encounter for preprocedural cardiovascular examination (principal); Z01.818 Encounter for other preprocedural examination
CPT/HCPCS: 36415; 80048; 85027; 93005

== ENCOUNTER 2020-03-17 14:02 | Emergency (ER) | payer MEDICARE, OTHER, SELFPAY ==
[2020-02-14 14:14] VITALS: BMI 29.6
[2020-03-17 14:04] VITALS: BP 172/94; PULSE 105; RESP 18; TEMP 36.8; O2SAT 98; BMI 29.3
--- NOTE | 2020-03-17 14:14 | RAD_ITS ---
STUDY: X-RAY - PELVIS AND RIGHT HIP REASON FOR EXAM: Male, 74 years old. RIGHT HIP PAIN -- FELL COUPLE DAYS AGO TECHNIQUE: 3 views of the pelvis and hip. COMPARISON: None. FINDINGS: There is a normal bowel gas pattern. There are atherosclerotic vascular calcifications of the pelvic arteries. Mild sacroiliac spurring. Normal bilateral superior and inferior pubic rami. Spurring at the pubic symphysis. Normal bilateral ischial tuberosities. There are osteoarthritic changes of the femoral head with marginal osteophyte formation. There is osteoarthritic spur formation of the acetabular rim. There is mild articular joint space narrowing of the hip. No acute fracture seen. RAD/HIP, UNI W/ Pelvis 2-3 Views IMPRESSION: Degenerative change. No acute fracture seen. Electronically Signed: Eliecer Shen MD at 14:58 EDT , Service support ,
[2020-03-17] MEDS: HYDROcodone Bitartrate/Apap 5/325 Tablet PO (14:25)
--- NOTE | 2020-03-17 14:28 | ED.DCSUM_ITS ---
History of Present Illness Chief Complaint: Hypertension Detail of Chief Complaint: Right hip pain status post fall Informant: Patient Onset: Yesterday Context: Sudden Onset Timing: Continuous Quality: Pain Location: Right greater trochanteric and right ischio tuberosity region Current Severity: Mild Maximum Severity: Severe Worsened by: Movement of right lower extremity at hip and sitting Relieved by: Better if supine Associated Symptoms: Pain with weightbearing and elevated blood pressure Narrative: Patient 74-year-old male. He was using a [employer] exercise machine. He forgot he move the seat. When he attempted to exit the machine he tripped over the seat. He landed on his right hip area. He localizes pain to the right greater trochanteric and right buttocks. Movement of the right hip causes him pain. Denies knee pain or ankle pain. He denies head trauma. Denies neck pain. He has no other complaints other than elevated blood pressure. He denies visual, ocular auditory symptoms. He denies cardiac respiratory symptoms. Prior similar symptoms: No Recent Illness/Hospitalization: No - Past Medical History (1) Bilateral carotid artery stenosis Status: Chronic (2) CVA (cerebral vascular accident) Status: Chronic Comment: Left parietal (3) Claudication in peripheral vascular disease Status: Chronic (4) Essential (primary) hypertension Status: Chronic (5) History of coronary artery stent placement Status: Chronic Comment: MEJ-ZGY-Qxci Cx 2.5 x 24 mm TAXUS Stent 11/22/17 (6) Hyperlipidemia Status: Chronic (7) Non-rheumatic tricuspid valve insufficiency Status: Chronic (8) Secondary pulmonary arterial hypertension Status: Chronic Past Medical History - Allergies and Home Meds Allergies/Adverse Reactions: Allergies aspirin Allergy (Severe, Verified 03/17/20 14:04) Other PATIENT STATES HAD AN HEART ATTACK. Penicillins [PCN] Allergy (Verified 03/17/20 14:04) Rash Sulfa (Sulfonamide Antibiotics) Allergy (Verified 03/17/20 14:04) Rash Primary Care Physician: Fly Patel MD [Primary Care Provider] - Prior records reviewed: Yes Surgical History: - - Cardiac cath with stents Lives: Alone Smoking Status: Former smoker Alcohol: None Drugs: None - Family History Maternal Family History: Family History (Last Reviewed 02/14/20 @ 14:[address] Mohsen Ruiz MD) Father Myocardial infarction CAD (coronary artery disease) Mother Diabetes Hypertension Cancer Family History: Reports: Stroke Review of Systems General: Denies: Chills, Fever, Malaise Eyes: Denies: Visual changes - bilaterally, Blurred Vision - bilaterally, Diplopia ENT: Denies: Bilateral ear pain Cardiovascular: Denies: Chest pain, Palpitations Respiratory: Denies: Dyspnea, Cough, Dyspnea on exertion Gastrointestinal: Denies: Abdominal pain, Nausea, Vomiting Genitourinary: Denies: Hematuria, Frequency Musculoskeletal: Reports: Swelling, Extremity Pain. Denies: Myalgias, Arthralgias, Neck pain, Back pain Skin: Denies: Rash, Wounds Neurological: Denies: Headache, Weakness, Parasthesia Endocrine: Denies: Polyuria, Polydipsia, Heat intolerance Hematologic: Denies: Easy bruising, Easy bleeding Physical Exam Vital Signs/Narrative: Vital Signs Temp Pulse Resp BP Pulse Ox 03/17/20 14:04 98.2 F 105 H 18 172/94 H 98 Inital Vital Signs reviewed: Yes General: Well nourished, Well developed, - - Patient appears uncomfortable. Head: Normocephalic, Atraumatic Eyes: Perrl, EOMI. Negative for: Pale conjunctiva, Scleral icterus ENT: No rhinorrhea, TM's clear Neck: Supple, Nontender, No lymphadenopathy, No JVD Cardiovascular: Regular rate, Regular rhythm, No murmurs, Normal S1, Normal S2 Respiratory: No distress, CTA bilaterally, Chest tenderness Abdomen: Soft, Nontender, Nondistended, Normal bowel sounds, - - There is pain to palpation over the right iliac wing and right ischio tuberosity. There is also pain to palpation over the right greater trochanteric region. Logrolling causes slight discomfort. There is no shortening of the leg. Rectal: Deferred Back: Nontender, Normal Inspection Extremities: No edema, Tenderness. Negative for: Nontender Skin: Normal color, No rash, No Trauma. Negative for: Cyanosis, Diaphoresis, Jaundice Neurological: Alert, Oriented x3, Cranial nerves II-XII grossly intact, Normal Strength, Normal Sensation. Negative for: Normal Gait Psychological: Normal affect, Normal Mood Diagnostic/Tx/Re-eval Chest X-Ray - ED: Read by ED Physician - Review x-ray of the right hip reveals no evidence of fracture. There is no evidence of fracture of the right femoral neck or intertrochanteric fracture. There is no evidence of pelvic fracture. The lower lumbar vertebrae appear normal as well. 03/17/20 14:14 HIP, UNI W/ Pelvis 2-3 Views [RAD] Stat - Medical Decision Making X-ray of the right hip was obtained to evaluate for pelvic and femoral neck fracture. Since patient has adverse response to aspirin he received [place]. Suspect patient's elevated blood pressure is due to pain. Since he has a nonfocal neurologic exam there is no indication to emergently lower his blood pressure. Because the patient's allergy to aspirin/NSAIDs he was discharged with a short course of opiate analgesia and instructed follow-up with his primary care physician. Is my professional medical opinion patient elevated blood pressure secondary to pain. ED Disposition - Plan for ED Patient: Disposition: Home or Assisted Living Diagnosis: Contusion of right hip, initial encounter Instructions: ED CONTUSION Hip Prescriptions: Hydrocodone Bitart/Apap 5-325 [[place] 5MG-325MG] 1 tab PO Q6H PRN PRN 3 Days #10 tab PRN Reason: Pain Prescription Printed Referrals: Fly Patel MD [Primary Care Provider] - 1 Week if not improving Additional Instructions: Have your blood pressure rechecked in 1 to 2 weeks.
[2020-03-17 15:00] VITALS: BP 167/89; PULSE 87; RESP 16; O2SAT 97
== END 2020-03-17 15:03 | disposition home or self-care (01) ==
PROVIDERS: Emergency Provider Emergency Medicine; PCP Family Medicine
DX: S70.01XA Contusion of right hip, initial encounter (principal); W18.09XA Striking against other object with subsequent fall, initial encounter; Y93.B1 Activity, exercise machines primarily for muscle strengthening; Y92.9 Unspecified place or not applicable; Y99.8 Other external cause status; I10 Essential (primary) hypertension; I27.21 Secondary pulmonary arterial hypertension; I36.1 Nonrheumatic tricuspid (valve) insufficiency; I65.23 Occlusion and stenosis of bilateral carotid arteries; I73.9 Peripheral vascular disease, unspecified; E78.5 Hyperlipidemia, unspecified; Z95.5 Presence of coronary angioplasty implant and graft; Z79.02 Long term (current) use of antithrombotics/antiplatelets; Z79.899 Other long term (current) drug therapy; Z87.891 Personal history of nicotine dependence; Z86.73 Personal history of transient ischemic attack (TIA), and cerebral infarction without residual deficits
CPT/HCPCS: 73502; 99283

== ENCOUNTER 2020-03-19 17:57 | Inpatient (IN) | payer MEDICARE, OTHER, SELFPAY ==
[2020-03-19 18:00] VITALS: BP 137/74; PULSE 90; RESP 18; TEMP 36.8; O2SAT 98; BMI 28.5
--- NOTE | 2020-03-19 18:19 | CT_ITS ---
STUDY: CT LUMBAR SPINE WITHOUT CONTRAST REASON FOR EXAM: Male, 74 years old. FALL 03/15/20. LBP. Prev low back surgery/ Hx of heart stent, CVA, HTN, PVD and HLD RADIATION DOSAGE (If Supplied By Facility): CTDIvol = ( 26.18 ) mGy, DLP = ( 950.12 ) mGycm TECHNIQUE: The patient was scanned in a multi detector CT scanner. High resolution transaxial imaging was performed. Images were obtained from to . Sagittal and coronal images were reconstructed. Individualized dose optimization techniques were used for this CT. COMPARISON: None FINDINGS: Normal lumbar lordosis. There is no substantial scoliosis. Normal vertebrae of the lumbar spine. L1-2: Normal endplates. Normal disc height and morphology. Normal bilateral facet joints. Normal central canal and bilateral lateral recesses. Normal bilateral intervertebral neural foramina. L2-3: Normal endplates. Normal disc height and morphology. Normal bilateral facet joints. Normal central canal and bilateral lateral recesses. Normal bilateral intervertebral neural foramina. L3-4: Normal endplates. Normal disc height and mild annular bulge. Mild facet arthropathy.. Normal central canal and bilateral lateral recesses. Moderate bilateral neuroforaminal encroachment L4-5: Status post bilateral laminectomy. Normal endplates. Normal disc height and moderate annular bulge. Bilateral facet arthropathy and thickening of ligamenta flava.. Normal central canal. Moderate bilateral recess and severe neuroforaminal stenosis exaggerated by shortened pedicles L5-S1: Mild endplate spurring. Normal disc height and mild annular bulge. Mild facet arthropathy. Normal central canal and bilateral lateral recesses. Normal bilateral intervertebral neural foramina. Small left renal cyst is noted Normal visualized paraspinous soft tissue structures. CT/Spine Lumbar without Contrast IMPRESSION: No evidence for acute fracture or subluxation. Postop changes at L4-5. Spinal stenosis at L3-4 and L4-5 secondary to disc disease and bony hypertrophy exaggerated by shortened pedicles Electronically Signed: Justin Seymour MD at 19:29 EDT , Service support ,
--- NOTE | 2020-03-19 18:22 | ED.VIS.GEN ---
History of Present Illness Chief Complaint: Fall Informant: Patient Onset: Days Context: Gradual Onset Timing: Continuous Current Severity: Moderate Maximum Severity: Severe Narrative: The patient is a 74-year-old male with medical history significant for hypertension, prior stroke, and lumbar radiculopathy who has had prior spine surgery. The patient presents to the emergency department with increasing low back pain that radiates down his right leg. The patient states that he is dealt with pain like this similar from time to time. He states he had a surgery and seemed to improve. He got a few epidural injections which also seem to help. His back started to bother him about a week ago. He then had a fall. He had been taking anti-inflammatories with little improvement and felt flushed and hypertensive. The patient presented here. He had negative x-rays and was prescribed analgesics. He states his been taking analgesics, but his pain is worsened. Has been trying to ambulate with crutches but feels like he cannot get around. He describes a burning pain down his entire leg. He denies any trouble urinating or moving his bowels. He denies any weakness of the leg, just severe pain. Prior similar symptoms: Yes Recent Illness/Hospitalization: No Past Medical History - Allergies and Home Meds Allergies/Adverse Reactions: Allergies aspirin Allergy (Severe, Verified 03/19/20 18:05) Other PATIENT STATES HAD AN HEART ATTACK. Penicillins [PCN] Allergy (Verified 03/19/20 18:05) Rash Sulfa (Sulfonamide Antibiotics) Allergy (Verified 03/19/20 18:05) Rash Primary Care Physician: Fly Patel MD [Primary Care Provider] - Prior records reviewed: Yes Past Medical History: - - Hypertension, prior stroke, Surgical History: - - Cardiac cath with stents Smoking Status: Former smoker - Family History Maternal Family History: Family History (Last Reviewed 02/14/20 @ 14:[address] Mohsen Ruiz MD) Father Myocardial infarction CAD (coronary artery disease) Mother Diabetes Hypertension Cancer Family History: Reports: Stroke Review of Systems General: Denies: Chills, Fever, Sweats Eyes: Denies: Visual changes - bilaterally, Diplopia ENT: Denies: Rhinorrhea, Sore throat Cardiovascular: Denies: Chest pain, Palpitations Respiratory: Denies: Dyspnea, Cough, Dyspnea on exertion Gastrointestinal: Denies: Abdominal pain, Nausea, Vomiting, Diarrhea, Melena, Hematochezia Genitourinary: Denies: Dysuria, Hematuria, Frequency Musculoskeletal: Reports: Back pain. Denies: Extremity Pain Skin: Denies: Rash, Wounds Neurological: Denies: Headache, Weakness, Numbness Physical Exam Vital Signs/Narrative: Vital Signs Temp Pulse Resp BP Pulse Ox 03/19/20 18:00 98.2 F 90 18 137/74 H 98 Inital Vital Signs reviewed: Yes General: Well nourished, Well developed, No Acute Distress Head: Normocephalic, Atraumatic Eyes: Perrl, EOMI ENT: Moist mucous membranes, No rhinorrhea Neck: Supple, Nontender Cardiovascular: Regular rate, Regular rhythm, No murmurs Respiratory: No distress, CTA bilaterally, Chest nontender Abdomen: Soft, Nontender, Nondistended, Normal bowel sounds Back: Normal Inspection, Spinal tenderness Extremities: Nontender, No edema Skin: Normal color, No rash Neurological: Alert, Oriented x3, Cranial nerves II-XII grossly intact, Normal Strength, Normal Sensation Psychological: Normal affect, Normal Mood Diagnostic/Tx/Re-eval Clinical Impression(s) from Imaging Studies Lumbar Spine CT 03/19/20 18:19 IMPRESSION: No evidence for acute fracture or subluxation. Postop changes at L4-5. Spinal stenosis at L3-4 and L4-5 secondary to disc disease and bony hypertrophy exaggerated by shortened pedicles Electronically Signed: Justin Seymour MD at 19:29 EDT , Service support , Abnormal Lab Results 03/19/20 03/19/20 03/19/20 18:45 18:45 19:30 WBC 13.3 H RBC 5.49 Hgb 16.1 Hct 47.0 MCV 85.6 MCH 29.3 MCHC 34.3 RDW Std Deviation 37.4 RDW Coeff of Bren 12.1 Plt Count 348 MPV 9.0 Immature Gran % (Auto) 0.500 Neut % (Auto) 76.5 H Lymph % (Auto) 15.2 L [place] % (Auto) 7.5 Eos % (Auto) 0.1 Baso % (Auto) 0.2 Absolute Neuts (auto) 10.1 H Absolute Lymphs (auto) 2.02 Nucleated RBC % 0 Sodium 135 L Potassium 3.7 Chloride 101 Carbon Dioxide 26.0 Anion Gap 8 BUN 26 H Creatinine 1.19 Estim Creat Clear Calc 52.46 Est GFR (MDRD) Af Amer 77 Est GFR (MDRD) Non-Af 64 BUN/Creatinine Ratio 21.8 H Glucose 151 H Calcium 10.1 Total Bilirubin 1.00 AST 15 ALT 27 Alkaline Phosphatase 90 Total Protein 8.4 H Albumin 4.0 Globulin 4.4 H Albumin/Globulin Ratio 0.9 Urine Color Yellow Urine Clarity Sl. Cloudy Urine pH 6.5 Ur Specific [place] 1.015 Urine Protein 30 H Urine Glucose (UA) Normal Urine Ketones Negative Urine Occult Blood 10 H Urine Nitrite Negative Urine Bilirubin Negative Urine Urobilinogen Normal Ur Leukocyte Esterase 100 H Urine RBC 0 SEEN Urine WBC 5-10 SEEN Ur Squamous Epith Cells 0-5 SEEN Urine Bacteria 0 SEEN Urine Mucus 0 SEEN - Medical Decision Making The patient presents with increasing radicular pain and inability to ambulate. He has no red flag symptoms. Metabolic work-up was pursued. He has a mild leukocytosis which I feel is likely reactive. There is 5-10 whites in his urine, but he has had no symptoms. Culture was added. Patient underwent CT which shows no evidence of acute fracture but there is significant chronic change. With analgesics, is feeling improved but still has a difficult time ambulating. He has attempted outpatient therapy with oral analgesics with no improvement. At this point, I do feel that observation for pain control and physical therapy evaluation would be appropriate. The patient agrees with this plan of care. Impression 1. Intractable back pain with radiculopathy ED Disposition - Plan for ED Patient: Referrals: Fly Patel MD [Primary Care Provider] -
[2020-03-19] MEDS: Morphine 4 MG/ML Syringe IV (18:41)
[2020-03-19] MEDS: Ondansetron 4 MG/2 ML Vial IV (18:41)
[2020-03-19 18:50] LABS: Absolute Lymphocyte Count 2.02 X10^3/uL (0.83-4.51); Absolute Neutrophil Count 10.1 X10^3/uL (2.0-7.7); Basophil# 0.03 X10^3/uL; Basophil% 0.2 % (0-1); Eosinophil# 0.01 X10^3/uL; Eosinophils% 0.1 % (0-5); Hemoglobin 16.1 g/dL (13.0-16.5); Lymphocyte # 2.02 X10^3/ul (4.0); Lymphocyte % 15.2 % (19-41); Mean Corp Hgb Conc 34.3 g/dL (32-36); Mean Corpuscular Hgb 29.3 pg (27.0-32.0); Mean Corpuscular Volume 85.6 fL (80-94); Monocyte# 0.99 X10^3/uL; Monocyte% 7.5 % (0-10); NRBC Flagged by Analyzer 0 % (0-5); Neutrophil # 10.14 X10^3/uL (2.7-7.7); Neutrophil % 76.5 % (47-70); Platelet Count 348 K/mm3 (150-450); RBC Distribution Width CV 12.1 % (11.6-14.6); RBC Distribution Width SD 37.4 fl (35.1-43.9); Red Blood Count 5.49 M/mm3 (4.6-6.2); White Blood Count 13.3 K/mm3 (4.4-11.0)
[2020-03-19 19:19] LABS: ALB/GLOB Ratio 0.9 RATIO (0.9-2.4); AST(SGOT) 15 U/L (15-37); Alanine Aminotransfer ALT/SGPT 27 U/L (16-61); Alkaline Phosphatase 90 U/L (45-117); Anion Gap 8 (5-15); BUN 26 mg/dL (7-18); BUN/Creat Ratio 21.8 RATIO (10-20); Calcium,Total 10.1 mg/dL (8.5-10.1); Chloride 101 mmol/L (98-107); Creatinine, Serum 1.19 mg/dL (0.70-1.30); EST Glomerular Filtration Rate 64 mL/min (>60); Est Glom Filt Rate - Afr Amer 77 mL/min (>60); Estimated Creatinine Clearance 52.46 ml/min; Globulin 4.4 g/dL (2.2-4.2); Glucose 151 mg/dL (74-106); Potassium 3.7 mmol/L (3.5-5.1); Protein, Total 8.4 g/dL (6.4-8.2); Sodium Level 135 mmol/L (136-145)
[2020-03-19 19:21] VITALS: BP 156/70; PULSE 79; RESP 15; O2SAT 97
[2020-03-19 19:35] LABS: Bacteria 0 SEEN /hpf (None Seen); Mucous, Urine 0 SEEN /hpf (<or=2+); Red Blood Cells-Urine 0 SEEN /hpf (0-5)
[2020-03-19 19:42] LABS: Color, Urine Yellow (Yellow); Glucose, Dipstick Normal (Normal); Ketone-Dipstick Negative (Negative); Leukocyte Esterase-Dipstick 100 /ul (Negative); Nitrite-Dipstick Negative (Negative); Occult Blood-Urine 10 /ul (Negative); Protein-Dipstick 30 mg/dl (Negative); Specific Gravity, Urine 1.015 (1.002-1.030); Urine Bilirubin Dipstick Negative (Negative); Urine Clarity Sl. Cloudy (Clear); Urine Urobilinogen Normal (Normal); Urine pH 6.5 (5.0 - 8.0)
[2020-03-19 19:49] LABS: White Blood Cells 5-10 SEEN /hpf (0-5)
[2020-03-19 19:50] LABS: Squamous Epithelial Cells - UA 0-5 SEEN /hpf (0-5)
[2020-03-19 20:21] VITALS: BP 140/75; PULSE 86; RESP 12; TEMP 36.9; O2SAT 97
[2020-03-19 21:12] VITALS: BMI 28.8
[2020-03-19 21:17] VITALS: BP 115/94; PULSE 81; RESP 18; TEMP 36.7; O2SAT 98
--- NOTE | 2020-03-19 21:21 | PCM.HP.STD ---
Problem List (1) Lumbar pain with radiation down right leg Status: Acute (2) Essential (primary) hypertension Status: Chronic (3) Hyperlipidemia Status: Chronic Qualifiers: Hyperlipidemia type: pure hypercholesterolemia Qualified Code(s): E78.00 - Pure hypercholesterolemia, unspecified; E78.0 - Pure hypercholesterolemia (4) H/O coronary artery bypass surgery Status: Chronic Comment: CABG x 4 RODRIGUEZ Sequential-LAD and D1, Left Radial Graft-RCA, SVG-OM1 12/19/97 (5) History of coronary artery stent placement Status: Chronic Comment: [id number]-HZA-[id number] Cx 2.5 x 24 mm TAXUS Stent 11/22/17 History of Present Illness Date of Admission: 03/19/20 Chief Complaint: back pain The patient is a 74 year old male patient with a past medical history of coronary artery disease, peripheral vascular disease, and history of lumbar surgery 3 years ago presents the emergency room with acute lower back pain radiating down his right leg to his foot. The onset of this pain began last week when apparently the patient was exercising using his Bowflex machine when he had a mishap and awkwardly fell off the machine. He states he had some mild lumbar pain prior to this event but then after the fall he began having much more severe pain. The pain was a 10/10 in severity and radiated down his right leg to his foot upon arrival and he was unable to walk more than a few steps without risk of falling. CT scan in the emergency room shows no acute fracture. The patient is able to move his bowels and is not incontinent to urine. ER physician has requested observation admission for pain control. The patient had been seen in the emergency room prior to this and sent home and has failed as an outpatient for pain control recently. Past Medical History Past Medical History (Chronic Problems): Chronic Problems (Last Reviewed 02/14/20 @ 14:[address] Mohsen Ruiz MD) Essential (primary) hypertension (Chronic) Old myocardial infarction (Chronic) Non-rheumatic tricuspid valve insufficiency (Chronic) Secondary pulmonary arterial hypertension (Chronic) Hyperlipidemia (Chronic) H/O coronary artery bypass surgery (Chronic 12/19/97) CABG x 4 RODRIGUEZ Sequential-LAD and D1, Left Radial Graft-RCA, SVG-OM1 12/19/97 History of coronary artery stent placement (Chronic 11/22/07) [id number]-[id number] Cx 2.5 x 24 mm TAXUS Stent 11/22/17 Atherosclerosis of coronary artery of [place] heart without angina pectoris (Chronic) [id number]-LWW-[id number] Cx 2.5 x 24 mm TAXUS Stent 11/22/07 CABG x 4 RODRIGUEZ Sequential-LAD and D1, Left Radial Graft-RCA, SVG-OM1 12/19/97 PVD (peripheral vascular disease) (Chronic) Occluded left SFA Claudication in peripheral vascular disease (Chronic) Bilateral carotid artery stenosis (Chronic) CVA (cerebral vascular accident) (Chronic 12/03/17) Left parietal Medical History: Medical History (Last Reviewed 02/14/20 @ 14:[address] Mohsen Ruiz MD) Essential (primary) hypertension (Chronic) I10 Old myocardial infarction (Chronic) I25.2 Non-rheumatic tricuspid valve insufficiency (Chronic) I36.1 Secondary pulmonary arterial hypertension (Chronic) I27.21 Hyperlipidemia (Chronic) E78.5 Atherosclerosis of coronary artery of [place] heart without angina pectoris (Chronic) I25.10 KWA-IYB-Qusa Cx 2.5 x 24 mm TAXUS Stent 11/22/07 CABG x 4 RODRIGUEZ Sequential-LAD and D1, Left Radial Graft-RCA, SVG-OM1 12/19/97 PVD (peripheral vascular disease) (Chronic) I73.9 Occluded left SFA Claudication in peripheral vascular disease (Chronic) I73.9 Bilateral carotid artery stenosis (Chronic) I65.23 CVA (cerebral vascular accident) (Chronic) Onset Date: 12/03/17 I63.9 Left parietal Allergies aspirin Allergy (Severe, Verified 03/19/20 18:05) Other PATIENT STATES HAD AN HEART ATTACK. Penicillins [PCN] Allergy (Verified 03/19/20 18:05) Rash Sulfa (Sulfonamide Antibiotics) Allergy (Verified 03/19/20 18:05) Rash Home Medications: Ambulatory Orders Medication Instructions Recorded Acetaminophen [Tylenol Tablet] 650 mg PO Q6H PRN PRN tab 12/04/17 magnesium oxide 500 mg tablet 500 mg PO QDAY tab 01/27/18 nitroglycerin 0.4 mg sublingual 0.4 mg SUBLINGUAL PRN PRN #25 tab 05/23/19 tablet clopidogrel 75 mg tablet 75 mg PO DAILY #90 tab 11/24/19 isosorbide mononitrate 60 mg 60 mg PO DAILY #90 tab 11/24/19 tablet,extended release 24 hr losartan 100 mg tablet 100 mg PO QDAY #90 tab 11/24/19 metoprolol succinate 50 mg 50 mg PO DAILY #90 tab 11/24/19 tablet,extended release 24 hr amlodipine 10 mg tablet 10 mg PO DAILY #90 tab 11/25/19 hydrochlorothiazide 25 mg tablet 25 mg PO DAILY #90 tab 11/28/19 Hydrocodone Bitart/Apap 5-325 1 tab PO Q6H PRN PRN 3 Days #10 tab 03/17/20 [[place] 5MG-325MG] Surgical History: Surgical History (Last Reviewed 02/14/20 @ 14:[address] Mohsen Ruiz MD) H/O coronary artery bypass surgery (Chronic) Onset Date: 12/19/97 Z95.1 CABG x 4 RODRIGUEZ Sequential-LAD and D1, Left Radial Graft-RCA, SVG-OM1 12/19/97 History of coronary artery stent placement (Chronic) Onset Date: 11/22/07 Z95.5 BEU-UAW-Zcnd Cx 2.5 x 24 mm TAXUS Stent 11/22/17 History of left heart catheterization Onset Date: ~08/10/13 Z98.890 History of arthroscopic knee surgery Z98.890 left History of bilateral cataract extraction Z98.41, Z98.42 History of shoulder surgery Z98.890 left History of tonsillectomy Z90.89 Status post trigger finger release Z98.890 X 2 Surgical History: - - Cardiac cath with stents Psychiatric History: No pertinent psych hx Smoking Status: Former smoker - *Family History Maternal Family History: Family History (Last Reviewed 02/14/20 @ 14:[address] Mohsen Ruiz MD) Father Myocardial infarction CAD (coronary artery disease) Mother Diabetes Hypertension Cancer History Items: Stroke Review of Systems Constitutional: Denies: Chills, Fever, Weight Change HEENT: Denies: Head Aches, Sinus Congestion, Sinus Drainage Cardiovascular: Denies: Chest Pain, Palpitations Respiratory: Denies: Cough, Shortness of breath at rest, Sputum production Gastrointestinal: Denies: Abdominal Pain, Nausea, Vomiting Genitourinary: Denies: Dysuria Musculoskeletal: Reports: Back Pain, Leg Pain. Denies: Joint Pain, Joint Tenderness Skin: Denies: Rash, Wounds Neurological: Denies: Numbness, Tingling, Focal weakness Psychiatric: Denies: Anxiety, Depression, Homicidal Ideations, Suicidal Ideations Hematologic/ Lymphatic: Denies: Easy Bruising, Easy Bleeding VTE Information - Inpt Only VTE Present on Admission: No VTE Mechan Device Prophylaxis: None VTE Pharm Prophylaxis ordered?: Yes Patient Problems: Active and Suspected Problems (Last Reviewed 02/14/20 @ 14:[address] Mohsen Ruiz MD) Lumbar pain with radiation down right leg (Acute) - Physical Exam Vitals/I&O's: Vital Signs Temp Pulse Resp BP Pulse Ox 98.1 F 81 18 115/94 H 98 03/19/20 21:17 03/19/20 21:17 03/19/20 21:17 03/19/20 21:17 03/19/20 21:17 Oxygen Delivery Method Room Air Weight: 178 lb 5.663 oz Body Mass Index (BMI) 28.8 Finger Stick Blood Glucose 108 Intake and Output for Last 24 Hours 03/17/20 03/18/20 03/19/20 23:59 23:59 23:59 Intake Total 500 / 500 Balance 500 / 500 General: Alert, Oriented x3, Cooperative HEENT: Atraumatic, Normocephalic Neck: Supple Lungs: Clear to auscultation, Normal air movement Cardiovascular: Regular rate, Regular Rhythm, Normal S1, Normal S2, No murmurs Abdomen: Bowel Sounds Present, Soft Extremities: No edema Skin: No rashes Musculoskeletal: Tenderness - lumbar spine area Neurological: Neuro grossly intact Psych/Mental Status: Normal Affect, Appropriate Laboratory Results 03/19/20 18:45: WBC 13.3 H, RBC 5.49, Hgb 16.1, Hct 47.0, MCV 85.6, MCH 29.3, MCHC 34.3, RDW Std Deviation 37.4, RDW Coeff of Bren 12.1, Plt Count 348, MPV 9.0, Immature Gran % (Auto) 0.500, Neut % (Auto) 76.5 H, Lymph % (Auto) 15.2 L, [place] % (Auto) 7.5, Eos % (Auto) 0.1, Baso % (Auto) 0.2, Absolute Neuts (auto) 10.1 H, Absolute Lymphs (auto) 2.02, Nucleated RBC % 0 03/19/20 18:45: Sodium 135 L, Potassium 3.7, Chloride 101, Carbon Dioxide 26.0, Anion Gap 8, BUN 26 H, Creatinine 1.19, Estim Creat Clear Calc 52.46, Est GFR (MDRD) Af Amer 77, Est GFR (MDRD) Non-Af 64, BUN/Creatinine Ratio 21.8 H, Glucose 151 H, Calcium 10.1, Total Bilirubin 1.00, AST 15, ALT 27, Alkaline Phosphatase 90, Total Protein 8.4 H, Albumin 4.0, Globulin 4.4 H, Albumin/Globulin Ratio 0.9 03/19/20 19:30: Urine Color Yellow, Urine Clarity Sl. Cloudy, Urine pH 6.5, Ur Specific [place] 1.015, Urine Protein 30 H, Urine Glucose (UA) Normal, Urine Ketones Negative, Urine Occult Blood 10 H, Urine Nitrite Negative, Urine Bilirubin Negative, Urine Urobilinogen Normal, Ur Leukocyte Esterase 100 H, Urine RBC 0 SEEN, Urine WBC 5-10 SEEN, Ur Squamous Epith Cells 0-5 SEEN, Urine Bacteria 0 SEEN, Urine Mucus 0 SEEN Assessment/Plan All Active Problems (Last Reviewed 02/14/20 @ 14:[address] Mohsen Ruiz MD) Lumbar pain with radiation down right leg (Acute) Chronic Problems (Last Reviewed 02/14/20 @ 14:[address] Mohsen Ruiz MD) Essential (primary) hypertension (Chronic) Old myocardial infarction (Chronic) Non-rheumatic tricuspid valve insufficiency (Chronic) Secondary pulmonary arterial hypertension (Chronic) Hyperlipidemia (Chronic) H/O coronary artery bypass surgery (Chronic 12/19/97) CABG x 4 RODRIGUEZ Sequential-LAD and D1, Left Radial Graft-RCA, SVG-OM1 12/19/97 History of coronary artery stent placement (Chronic 11/22/07) [id number]-STU-[id number] Cx 2.5 x 24 mm TAXUS Stent 11/22/17 Atherosclerosis of coronary artery of [place] heart without angina pectoris (Chronic) OPC-SLU-Uvsd Cx 2.5 x 24 mm TAXUS Stent 11/22/07 CABG x 4 RODRIGUEZ Sequential-LAD and D1, Left Radial Graft-RCA, SVG-OM1 12/19/97 PVD (peripheral vascular disease) (Chronic) Occluded left SFA Claudication in peripheral vascular disease (Chronic) Bilateral carotid artery stenosis (Chronic) CVA (cerebral vascular accident) (Chronic 12/03/17) Left parietal Plan 1. Lower back pain with right leg radiculopathy.?Admit to general medical floor for observation, morphine 2 to 4 mg IV every 3 hours as needed pain, consult physical therapy in the morning for assistance with ADLs. Would plan to do MRI as outpatient if fails to progress with physical therapy and other modalities. 2. Hypertension?continue home medications 3. Hyperlipidemia?continue statin 4. DVT prophylaxis?low molecular weight heparin if not on anticoagulation already OBSV E&M: 60195 Initial observation care L2
[2020-03-19 21:28] VITALS: BMI 28.8
[2020-03-19] MEDS: oxyCODONE 5 MG Tablet PO (23:16)
[2020-03-20] MEDS: Acetaminophen 325 MG Tablet 650 MG PO (03:20)
[2020-03-20 03:23] VITALS: BP 132/55; PULSE 87; RESP 18; TEMP 37.1; O2SAT 98
[2020-03-20 07:59] VITALS: BP 152/69; PULSE 80; RESP 16; TEMP 37.4; O2SAT 98
[2020-03-20] MEDS: cycloBENZAPRine HCl 10 MG Tablet PO ×2 (11:37→19:47)
--- NOTE | 2020-03-20 15:55 | PCM.PN.HOSP ---
Patient Problems: Active and Suspected Problems (Last Reviewed 02/14/20 @ 14:[address] Mohsen Ruiz MD) Lumbar pain with radiation down right leg (Acute) Subjective: Night pain was helped with narcotics. He was in too much pain however this morning to walk with physical therapy Vitals/I&O's: Vital Signs Temp Pulse Resp BP Pulse Ox 99.4 F H 80 16 152/69 H 98 03/20/20 07:59 03/20/20 07:59 03/20/20 07:59 03/20/20 07:59 03/20/20 07:59 Oxygen Delivery Method Room Air Weight: 178 lb 5.663 oz Body Mass Index (BMI) 28.8 Finger Stick Blood Glucose 108 Intake and Output for Last 24 Hours 03/18/20 03/19/20 03/20/20 23:59 23:59 23:59 Intake Total 500 / 500 Balance 500 / 500 General: Alert, Oriented x3, Cooperative, No apparent distress HEENT: Atraumatic, PERRLA, EOMI, Normocephalic Oral: Moist Mucosa Neck: Supple, No JVD Lungs: Clear to auscultation, Normal air movement, No rhonchi, No wheeze, No rales Cardiovascular: Regular rate, Regular Rhythm, Normal S1, Normal S2, No murmurs Abdomen: Soft, Non Tender, Non-Distended, No Hepato-splenomegaly Extremities: No edema, Capillary Refill Less than 3 Seconds Skin: No rashes, No breakdown Musculoskeletal: - - Sounds like he has a right paraspinal muscle spasm. He does not have any midline tenderness but he does have a positive straight leg test Neurological: Neuro grossly intact, Sensory exam intact to light touch and pain Psych/Mental Status: Normal Affect, Appropriate Microbiology Past 72 Hours 03/19/20 22:07 Urine, Clean Catch Urine Culture - Preliminary Culture exhibits no growth. Laboratory Results 03/19/20 18:45: WBC 13.3 H, RBC 5.49, Hgb 16.1, Hct 47.0, MCV 85.6, MCH 29.3, MCHC 34.3, RDW Std Deviation 37.4, RDW Coeff of Bren 12.1, Plt Count 348, MPV 9.0, Immature Gran % (Auto) 0.500, Neut % (Auto) 76.5 H, Lymph % (Auto) 15.2 L, [place] % (Auto) 7.5, Eos % (Auto) 0.1, Baso % (Auto) 0.2, Absolute Neuts (auto) 10.1 H, Absolute Lymphs (auto) 2.02, Nucleated RBC % 0 03/19/20 18:45: Sodium 135 L, Potassium 3.7, Chloride 101, Carbon Dioxide 26.0, Anion Gap 8, BUN 26 H, Creatinine 1.19, Estim Creat Clear Calc 52.46, Est GFR (MDRD) Af Amer 77, Est GFR (MDRD) Non-Af 64, BUN/Creatinine Ratio 21.8 H, Glucose 151 H, Calcium 10.1, Total Bilirubin 1.00, AST 15, ALT 27, Alkaline Phosphatase 90, Total Protein 8.4 H, Albumin 4.0, Globulin 4.4 H, Albumin/Globulin Ratio 0.9 03/19/20 19:30: Urine Color Yellow, Urine Clarity Sl. Cloudy, Urine pH 6.5, Ur Specific [place] 1.015, Urine Protein 30 H, Urine Glucose (UA) Normal, Urine Ketones Negative, Urine Occult Blood 10 H, Urine Nitrite Negative, Urine Bilirubin Negative, Urine Urobilinogen Normal, Ur Leukocyte Esterase 100 H, Urine RBC 0 SEEN, Urine WBC 5-10 SEEN, Ur Squamous Epith Cells 0-5 SEEN, Urine Bacteria 0 SEEN, Urine Mucus 0 SEEN Current Medications Acetaminophen (Tylenol) 650 mg PO Q6H PRN PRN PRN Reason: Mild Pain (1-3)/Temp > 100.7 F Last Admin: 03/20/20 03:20 Dose: 650 mg Documented by: Amlodipine Besylate (Norvasc) 10 mg PO DAILY [facility] Clopidogrel Bisulfate (Plavix) 75 mg PO DAILY [facility] Cyclobenzaprine HCl (Flexeril) 10 mg PO TID PRN PRN PRN Reason: Back pain Last Admin: 03/20/20 11:37 Dose: 10 mg Documented by: Enoxaparin Sodium (Lovenox) 40 mg SC DAILY [facility] Hydrochlorothiazide (Hctz) 25 mg PO DAILY [facility] Sodium Chloride () 250 mls @ 15 mls/hr IV .[id number] PRN PRN Reason: Saline Flush Sodium Chloride () 250 mls @ 15 mls/hr IV .[id number] PRN PRN Reason: Additional IVPB Infusion Isosorbide Mononitrate (Imdur) 60 mg PO DAILY [facility] Losartan Potassium (Cozaar) 100 mg PO DAILY [facility] Magnesium Oxide (Mag-Ox 400) 400 mg PO DAILY [facility] Metoprolol Succinate (Toprol Xl (Beta Johana)) 50 mg PO DAILY [facility] Nitroglycerin (Nitrostat) 0.4 mg SUBLINGUAL Q5M PRN PRN Reason: CARDIAC/CHEST PAIN Ondansetron HCl (Zofran) 4 mg IV Q8H PRN PRN PRN Reason: NAUSEA/VOMITING Sodium Chloride () 10 - 40 ml IV UD PRN PRN Reason: SALINE FLUSH Medical Necessity - Tobacco Use Smoking Status: Former smoker Assessment/Plan All Active Problems (Last Reviewed 02/14/20 @ 14:[address] Mohsen Ruiz MD) Lumbar pain with radiation down right leg (Acute) 1. Right-sided paraspinal muscle spasm with Lumbar radiculopathy and sciatica on the right side -Pain started last week and then got worse after he tried working out on his Bowflex -Discontinue his narcotics -We will start him on Flexeril and if improvement will evaluate again with PT otherwise may also need to start steroids -PT/OT, to evaluate for possible placement. Unfortunately today he had too much pain to be able to work with them 2. CAD status post CABG and stent/HTN/HLD/PVD/history of CVA -Blood pressure is stable, continue with his home Norvasc, hydrochlorothiazide, Imdur, losartan, and metoprolol -Continue with Plavix DVT: Lovenox Inpatient E&M: 92226 Subs Hosp L2
[2020-03-20 16:09] VITALS: BP 131/62; PULSE 100; RESP 18; TEMP 37.8; O2SAT 96
[2020-03-20 16:13] VITALS: PULSE 101
[2020-03-20] MEDS: Metoprolol(XL)Succ 50 MG Tablet PO (16:13)
[2020-03-20] MEDS: Losartan Potassium 100 MG Tablet PO (16:13)
[2020-03-20] MEDS: Enoxaparin 40 MG/0.4 ML Syringe SC (16:13)
[2020-03-20] MEDS: Magnesium Oxide 400 MG Tablet PO (16:13)
[2020-03-20] MEDS: amLODIPine 10 MG Tablet PO (16:13)
[2020-03-20] MEDS: Clopidogrel Bisulfate 75 MG Tablet PO (16:13)
[2020-03-20] MEDS: Isosorbide Mononitrate 60 MG Tablet PO (16:13)
[2020-03-20] MEDS: hydroCHLOROthiazide 25 MG Tablet PO (16:13)
[2020-03-20 20:35] VITALS: BP 122/48; PULSE 96; RESP 18; TEMP 36.6; O2SAT 97
[2020-03-21 03:15] VITALS: BP 127/52; PULSE 87; RESP 18; TEMP 37.1; O2SAT 96
[2020-03-21] MEDS: cycloBENZAPRine HCl 10 MG Tablet PO (05:46)
[2020-03-21 06:46] LABS: Absolute Lymphocyte Count 1.88 X10^3/uL (0.83-4.51); Absolute Neutrophil Count 8.3 X10^3/uL (2.0-7.7); Basophil# 0.03 X10^3/uL; Basophil% 0.3 % (0-1); Eosinophil# 0.03 X10^3/uL; Eosinophils% 0.3 % (0-5); Hemoglobin 14.1 g/dL (13.0-16.5); Lymphocyte # 1.88 X10^3/ul (4.0); Lymphocyte % 16.6 % (19-41); Mean Corp Hgb Conc 34.4 g/dL (32-36); Mean Corpuscular Hgb 29.1 pg (27.0-32.0); Mean Corpuscular Volume 84.7 fL (80-94); Monocyte# 1.05 X10^3/uL; Monocyte% 9.3 % (0-10); NRBC Flagged by Analyzer 0 % (0-5); Neutrophil # 8.29 X10^3/uL (2.7-7.7); Neutrophil % 73.2 % (47-70); Platelet Count 289 K/mm3 (150-450); RBC Distribution Width CV 12.2 % (11.6-14.6); RBC Distribution Width SD 37.1 fl (35.1-43.9); Red Blood Count 4.84 M/mm3 (4.6-6.2); White Blood Count 11.3 K/mm3 (4.4-11.0)
[2020-03-21 07:13] LABS: Anion Gap 5 (5-15); BUN 40 mg/dL (7-18); BUN/Creat Ratio 33.6 RATIO (10-20); Calcium,Total 9.2 mg/dL (8.5-10.1); Chloride 100 mmol/L (98-107); Creatinine, Serum 1.19 mg/dL (0.70-1.30); EST Glomerular Filtration Rate 64 mL/min (>60); Est Glom Filt Rate - Afr Amer 77 mL/min (>60); Estimated Creatinine Clearance 50.63 ml/min; Glucose 115 mg/dL (74-106); Potassium 3.5 mmol/L (3.5-5.1); Sodium Level 132 mmol/L (136-145)
[2020-03-21 09:00] VITALS: BP 134/55; PULSE 82; RESP 18; TEMP 36.7; O2SAT 96
[2020-03-21 09:44] VITALS: BP 134/55; PULSE 82
[2020-03-21] MEDS: Enoxaparin 40 MG/0.4 ML Syringe SC (09:44)
[2020-03-21] MEDS: Isosorbide Mononitrate 60 MG Tablet PO (09:44)
[2020-03-21] MEDS: hydroCHLOROthiazide 25 MG Tablet PO (09:44)
[2020-03-21] MEDS: amLODIPine 10 MG Tablet PO (09:44)
[2020-03-21] MEDS: Clopidogrel Bisulfate 75 MG Tablet PO (09:44)
[2020-03-21] MEDS: Metoprolol(XL)Succ 50 MG Tablet PO (09:44)
[2020-03-21] MEDS: Magnesium Oxide 400 MG Tablet PO (09:44)
[2020-03-21] MEDS: Losartan Potassium 100 MG Tablet PO (09:44)
[2020-03-21] MEDS: Acetaminophen 325 MG Tablet 650 MG PO (09:49)
--- NOTE | 2020-03-21 10:35 | CASEMGMT ---
RN BARRY Face to Face with patient for initial transition planning/care coordination assessment. RN CM introduced self and role at [facility]. Patient lying in bed, alert and oriented. Patient willing to participate in assessment and is able to answer all questions appropriately. Care providers, pharmacy, and demographics verified. Patient wishes to discharge home with outpatient therapy, script received and given to patient. Patient states he has no further needs or concerns at this time. CM to follow for discharge planning needs that may arise. PCP: Amanda Specialists: Joseph stave planer tender Preferred Pharmacy: [facility] Insurance: [facility] SlyceBulmaro Prescription Benefit: yes Living Will/HPOA: none LNOK: Living Arrangements: Patient lives with in house with flight of stairs to main level of house. Patient states he is independent at home. Transportation: self/ DME/HHC: Patient states he has cane, walker, and crutches at home. Patient denies previous HHC. Disposition Plan: Patient to discharge home with family support and follow-up plans in place. Ondina IGLESIAS, RN, CM
--- NOTE | 2020-03-21 11:04 | PCM.DC ---
- Discharge Diagnoses Current Active Problems: Current Active and Chronic Problems (Last Reviewed 02/14/20 @ 14:[address] Mohsen Ruiz MD) Lumbar pain with radiation down right leg (Acute) You will use the following diet at home:: No restrictions Your food should be the consistency of: Regular Your liquids should be the consistency of: Regular/Thin Discharge Activity: Return to Normal Activity Allergies/Adverse Reactions: Allergies aspirin Allergy (Severe, Verified 03/19/20 21:31) Other PATIENT STATES HAD AN HEART ATTACK. Penicillins [PCN] Allergy (Verified 03/19/20 21:31) Rash Sulfa (Sulfonamide Antibiotics) Allergy (Verified 03/19/20 21:31) Rash Medications to take at Discharge Acetaminophen [Tylenol Tablet] 650 mg PO Q6H PRN PRN tab 12/04/17 magnesium oxide 500 mg tablet 500 mg PO QDAY tab 01/27/18 nitroglycerin 0.4 mg sublingual tablet 0.4 mg SUBLINGUAL PRN PRN #25 tab 05/23/19 clopidogrel 75 mg tablet 75 mg PO DAILY #90 tab 11/24/19 isosorbide mononitrate 60 mg tablet,extended release 24 hr 60 mg PO DAILY #90 tab 11/24/19 losartan 100 mg tablet 100 mg PO QDAY #90 tab 11/24/19 metoprolol succinate 50 mg tablet,extended release 24 hr 50 mg PO DAILY #90 tab 11/24/19 amlodipine 10 mg tablet 10 mg PO DAILY #90 tab 11/25/19 hydrochlorothiazide 25 mg tablet 25 mg PO DAILY #90 tab 11/28/19 Hydrocodone/Acetaminophen [[place] 5-325 Tablet] 1 each PO Q4H PRN PRN 7 Days #20 tablet 03/21/20 Prednisone 20 mg PO UD #11 tab 03/21/20 cycloBENZAPRine HCl [Flexeril] 5 - 10 mg PO TID PRN PRN #15 tab 03/21/20 The following prescriptions were given: cycloBENZAPRine HCl [Flexeril] 5 - 10 mg PO TID PRN PRN #15 tab PRN Reason: Back pain Transmission Status: Pending to [id number] Hydrocodone/Acetaminophen [[place] 5-325 Tablet] 1 each PO Q4H PRN PRN 7 Days #20 tablet PRN Reason: Pain Score 1-3/10 Transmission Status: Received by [facility] Prednisone 20 mg PO UD #11 tab Transmission Status: Pending to [facility] Primary Care Physician: Fly Patel MD [Primary Care Provider] - Please follow up with your Primary Care Physician in: in 2 weeks Test Results: Test results from this visit will be discussed in further detail at your follow-up appointment, if applicable.
[2020-03-21 12:45] VITALS: BP 134/55; PULSE 82; RESP 18; TEMP 36.7; O2SAT 96
--- NOTE | 2020-03-22 08:31 | DS.PCM_ITS ---
Discharge Date and Diagnosis Date of Admission: 03/19/20 Date of Discharge: 03/21/20 - Primary Discharge Diagnosis #1 lumbar spinal stenosis with acute radiculopathy to the legs #2 atherosclerotic heart disease #3 leukocytosis-etiology unclear #4 intractable lumbar back pain secondary to muscle spasm with an overlay of degenerative joint disease of the lumbar spine #5 essential hypertension - Secondary Discharge Diagnosis Chronic Problems (Last Reviewed 02/14/20 @ 14:[address] Mohsen Ruiz MD) Essential (primary) hypertension (Chronic) Old myocardial infarction (Chronic) Non-rheumatic tricuspid valve insufficiency (Chronic) Secondary pulmonary arterial hypertension (Chronic) Hyperlipidemia (Chronic) H/O coronary artery bypass surgery (Chronic 12/19/97) CABG x 4 RODRIGUEZ Sequential-LAD and D1, Left Radial Graft-RCA, SVG-OM1 12/19/97 History of coronary artery stent placement (Chronic 11/22/07) WUS-MOX-Bglp Cx 2.5 x 24 mm TAXUS Stent 11/22/17 Atherosclerosis of coronary artery of [place] heart without angina pectoris (Chronic) HPE-OBD-Qvmt Cx 2.5 x 24 mm TAXUS Stent 11/22/07 CABG x 4 RODRIGUEZ Sequential-LAD and D1, Left Radial Graft-RCA, SVG-OM1 12/19/97 PVD (peripheral vascular disease) (Chronic) Occluded left SFA Claudication in peripheral vascular disease (Chronic) Bilateral carotid artery stenosis (Chronic) CVA (cerebral vascular accident) (Chronic 12/03/17) Left parietal Hospital Course and Treatment Operations: None Procedures: None Summary of Care Provided: The patient is a 74 year old M was seen in the emergency room at [facility] with a chief complaint of lower back pain with radiation into the right leg, work-up in the emergency room included a CT of the lumbar spine which showed multilevel disc disease of the lumbar spine with spinal stenosis, patient's lab showed an elevated white blood cell count but was otherwise unremarkable. Patient had difficulty ambulating in the emergency room and he was admitted to [place] [address] and placed on narcotic analgesics and muscle relaxants. Patient was seen in consultation by physical therapy, he improved during his hospitalization and on 03/21/2020, patient was seen and examined: On examination he appeared in good health and spirits. Vital signs as documented. Skin warm and dry and without overt rashes. Neck without JVD, neck was supple, trachea midline, thyroid was normal. Lungs clear bilaterally, normal air movement was noted. Heart exam notable for regular rhythm, normal sounds and absence of murmurs, rubs or gallops. Abdomen unremarkable and without evidence of organomegaly, masses, or abdominal aortic enlargement. Bowel sounds are present, abdomen is not distended. Extremities nonedematous, no cyanosis was noted, no clubbing was noted. Neuro: Cranial nerves II through XII are grossly intact, no focal motor deficits were noted, sensation to light touch and pinprick intact, motor exam 5/5 throughout. Psych: Patient is alert and ana ented x3, he does not appear anxious or depressed, he does not appear agitated. Patient appears stable for discharged home on 03/21/2020, prescription for outpatient physical therapy was provided for the patient at the time of discharge. - Physical Exam Vitals/I&O's: Vital Signs Temp Pulse Resp BP Pulse Ox 98.1 F 82 18 134/55 H 96 03/21/20 12:45 03/21/20 12:45 03/21/20 12:45 03/21/20 12:45 03/21/20 12:45 Oxygen Delivery Method Room Air Weight: 80.9 kg Body Mass Index (BMI) 28.8 Finger Stick Blood Glucose 108 Intake and Output for Last 24 Hours 03/20/20 03/21/20 03/22/20 23:59 23:59 23:59 Intake Total 1000 / 1000 480 / 480 Balance 1000 / 1000 480 / 480 Microbiology Past 72 Hours 03/19/20 22:07 Urine, Clean Catch Urine Culture - Preliminary Culture exhibits no growth. Discharge Activity: Return to Normal Activity Home Medications: Medications to take at Discharge Acetaminophen [Tylenol Tablet] 650 mg PO Q6H PRN PRN tab 12/04/17 magnesium oxide 500 mg tablet 500 mg PO QDAY tab 01/27/18 nitroglycerin 0.4 mg sublingual tablet 0.4 mg SUBLINGUAL PRN PRN #25 tab 05/23/19 clopidogrel 75 mg tablet 75 mg PO DAILY #90 tab 11/24/19 isosorbide mononitrate 60 mg tablet,extended release 24 hr 60 mg PO DAILY #90 tab 11/24/19 losartan 100 mg tablet 100 mg PO QDAY #90 tab 11/24/19 metoprolol succinate 50 mg tablet,extended release 24 hr 50 mg PO DAILY #90 tab 11/24/19 amlodipine 10 mg tablet 10 mg PO DAILY #90 tab 11/25/19 hydrochlorothiazide 25 mg tablet 25 mg PO DAILY #90 tab 11/28/19 Hydrocodone/Acetaminophen [[place] 5-325 Tablet] 1 ea PO Q4H PRN PRN 7 Days #20 tab 03/21/20 Prednisone 20 mg PO UD #11 tab 03/21/20 cycloBENZAPRine HCl [Flexeril] 5 - 10 mg PO TID PRN PRN #15 tab 03/21/20 Following Prescrptions Were Given to Patient: cycloBENZAPRine HCl [Flexeril] 5 - 10 mg PO TID PRN PRN #15 tab PRN Reason: Back pain Transmission Status: Received by [id number] Hydrocodone/Acetaminophen [[place] 5-325 Tablet] 1 ea PO Q4H PRN PRN 7 Days #20 tab PRN Reason: Pain Score 1-3/10 Transmission Status: Received by [facility] Prednisone 20 mg PO UD #11 tab Transmission Status: Received by [facility] Primary Care Physician: Fly Patel MD [Primary Care Provider] - Please follow up with your Primary Care Physician in: in 2 weeks Disposition: Home Minutes spent on discharge:: 31 Patient Condition:: Stable Medical Necessity - Tobacco Use Smoking Status: Former smoker Meaningful Use Info Meaningful Use Diagnoses (Choose all that apply): None applicable Inpatient E&M: 90742 Disch Hosp
--- NOTE | 2020-03-22 15:14 | CASEMGMT ---
[facility] DC PHONE CALL DC DATE: 03.21.2020 DC DISPOSITION: Home DC DIAGNOSIS: Lumbar spinal stenosis with acute radiculopathy to legs LACE/STRATA: 08/25 F/U APPTS MADE PRIOR TO DC: NO PRESCRIPTIONS ACQUIRED BY PT: unknown Attempted call to patient. Phone did not appear to be working. Miki SHEFFIELDN RN ACM
== END 2020-03-21 12:43 | disposition home or self-care (01) | DRG 552 ==
LOC: ED 18:43 → MS3 03-20 04:42
PROVIDERS: Family Medicine; Admitting Provider Family Medicine; Emergency Provider Emergency Medicine; PCP Family Medicine; Visit Provider Internal Medicine
DX: M51.16 Intervertebral disc disorders with radiculopathy, lumbar region (principal); M48.061 Spinal stenosis, lumbar region without neurogenic claudication; M62.830 Muscle spasm of back; W19.XXXA Unspecified fall, initial encounter; S70.01XA Contusion of right hip, initial encounter; W18.09XA Striking against other object with subsequent fall, initial encounter; Y93.B1 Activity, exercise machines primarily for muscle strengthening; Y92.9 Unspecified place or not applicable; Y99.8 Other external cause status; I10 Essential (primary) hypertension; I25.10 Atherosclerotic heart disease of native coronary artery without angina pectoris; I25.2 Old myocardial infarction; I36.1 Nonrheumatic tricuspid (valve) insufficiency; I27.21 Secondary pulmonary arterial hypertension; I70.212 Atherosclerosis of native arteries of extremities with intermittent claudication, left leg; I65.23 Occlusion and stenosis of bilateral carotid arteries; D72.829 Elevated white blood cell count, unspecified; E78.00 Pure hypercholesterolemia, unspecified; Z98.1 Arthrodesis status; Z95.1 Presence of aortocoronary bypass graft; Z95.5 Presence of coronary angioplasty implant and graft; Z79.02 Long term (current) use of antithrombotics/antiplatelets; Z79.899 Other long term (current) drug therapy; Z87.891 Personal history of nicotine dependence; Z86.73 Personal history of transient ischemic attack (TIA), and cerebral infarction without residual deficits
CPT/HCPCS: 36415; 72131; 73502; 80048; 80053; 81001; 85025; 87086; 87088; 97162; 97166; 97530; 99283; 99285; J7040; A4216; J2405

== ENCOUNTER → 2022-07-16 | Outpatient (CLI) | payer MEDICARE, OTHER, SELFPAY ==
--- NOTE | 2022-07-16 15:25 | EKG12_ITS ---
Test Reason : Blood Pressure : / mmHG Vent. Rate : 056 BPM Atrial Rate : 056 BPM P-R Int : 212 ms QRS Dur : 092 ms QT Int : 418 ms P-R-T Axes : 074 017 088 degrees QTc Int : 403 ms Sinus bradycardia with 1st degree A-V block Nonspecific ST and T wave abnormality Abnormal ECG Confirmed by JOSE MIGUEL LECHUGA, CLAU ([id number]), health editor MARY BERNARDO ([id number]) on 07/17/2022 9:51:53 AM Referred By: Evon Yanez Confirmed By:CLAU GILLESPIE MD
== END | disposition home or self-care (01) ==
LOC: PSN 15:24
PROVIDERS: PCP Internal Medicine; Referring Provider Internal Medicine; Visit Provider Internal Medicine
DX: R07.9 Chest pain, unspecified (principal); I25.10 Atherosclerotic heart disease of native coronary artery without angina pectoris; I65.23 Occlusion and stenosis of bilateral carotid arteries; E78.5 Hyperlipidemia, unspecified; Z95.1 Presence of aortocoronary bypass graft; Z95.5 Presence of coronary angioplasty implant and graft; Z86.73 Personal history of transient ischemic attack (TIA), and cerebral infarction without residual deficits
CPT/HCPCS: 93005

== ENCOUNTER → 2022-08-02 | Outpatient (CLI) | payer MEDICARE, OTHER, SELFPAY ==
[2022-08-02 09:02] LABS: Bacteria 0 SEEN /hpf (None Seen); Mucous, Urine 0 SEEN /hpf (<or=2+); Squamous Epithelial Cells - UA 0 SEEN /hpf (0-5); White Blood Cells 0 SEEN /hpf (0-5)
[2022-08-02 09:32] LABS: Color, Urine Brown (Yellow); Glucose, Dipstick Normal (Normal); Ketone-Dipstick 5 mg/dl (Negative); Leukocyte Esterase-Dipstick 25 /ul (Negative); Nitrite-Dipstick Negative (Negative); Occult Blood-Urine 250 /ul (Negative); Protein-Dipstick 100 mg/dl (Negative); Specific Gravity, Urine 1.015 (1.002-1.030); Urine Bilirubin Dipstick Negative (Negative); Urine Clarity Cloudy (Clear); Urine Urobilinogen Normal (Normal)
[2022-08-02 11:12] LABS: Red Blood Cells-Urine > 100 SEEN /hpf (0-5)
== END | disposition home or self-care (01) ==
LOC: LAB 08:55
PROVIDERS: PCP Internal Medicine; Referring Provider Internal Medicine; Visit Provider Internal Medicine
DX: I10 Essential (primary) hypertension (principal); I63.9 Cerebral infarction, unspecified; E78.00 Pure hypercholesterolemia, unspecified; I65.23 Occlusion and stenosis of bilateral carotid arteries; N52.9 Male erectile dysfunction, unspecified; Z95.1 Presence of aortocoronary bypass graft
CPT/HCPCS: 36415; 81001

== ENCOUNTER → 2022-08-06 | Outpatient (CLI) | payer MEDICARE, OTHER, SELFPAY ==
--- NOTE | 2022-08-06 15:25 | US_ITS ---
STUDY: RENAL ULTRASOUND - COMPLETE REASON FOR EXAM: Male, 76 years old. gross Hematuria TECHNIQUE: Ultrasound evaluation of the kidneys was performed with real-time and static [place]-scale imaging. COMPARISON: None. FINDINGS: RIGHT KIDNEY: with mild renal atrophy. The right kidney measures 9.1 cm. There is a normal cortex of the right kidney. The renal cortex measures 1.9 cm. There is no right renal mass or cyst. There are no right renal calculi. There is no right hydronephrosis. DISTAL RIGHT URETER: There is non-visualization of the distal right ureter. There is no demonstrated right ureterovesical junction calculus. There is a visualized right ureteral jet. LEFT KIDNEY: Normal location of the left kidney, which is normal in size. The left kidney measures 11.4 cm. There is a normal cortex of the left kidney. The renal cortex measures 1.5 cm. There is exophytic left renal cyst measuring 29 x 31 mm. There are no left renal calculi. There is no left hydronephrosis. DISTAL LEFT URETER: There is non-visualization of the distal left ureter. There is no demonstrated left ureterovesical junction calculus. There is a visualized left ureteral jet. AORTA: There is obscuration of the abdominal aorta by overlying bowel gas I.V.C.: The IVC is obscured. BLADDER: The distended urinary bladder has a volume of 326 ml. There is a normal wall thickness of the distended urinary bladder. There is two demonstrated mass within the urinary bladder. This measures 18 x 14 mm and 8 x 7 mm. There are no demonstrated bladder calculi. US/Kidney and Bladder IMPRESSION: Mild atrophy of the right kidney. Exophytic cysts of the left kidney. No follow-up required. Masslike areas in the urinary bladder. CT with IV is recommended to evaluate Electronically Signed: Chuy Jimenez MD at 16:22 EDT ,
== END | disposition home or self-care (01) ==
LOC: US 15:23
PROVIDERS: PCP Internal Medicine; Referring Provider Internal Medicine; Visit Provider Internal Medicine
DX: R31.0 Gross hematuria (principal)
CPT/HCPCS: 76770

== ENCOUNTER 2023-09-02 15:08 | Emergency (ER) | payer MEDICARE, OTHER, SELFPAY ==
[2023-09-02 15:09] VITALS: BP 166/75; PULSE 74; RESP 16; TEMP 36.3; O2SAT 98; BMI 28.1
--- NOTE | 2023-09-02 15:53 | EX.ED.UPPERE ---
HPI History of Present Illness HPI Narrative: Flap laceration left small finger tip while cutting foreman at home. Chief Complaint: Laceration Informant: patient and spouse/S.O. Occured/Mechanism Mechanism/Context: Yes injury Onset/Context/Timing Onset: Today and Hours Context: Sudden Onset Timing: Continuous Current Severity: Mild Maximum Severity: Mild Associated Symptoms Associated Symptoms: Negative for Parasthesia, Weakness or Loss of Funtion Narrative Narrative: 77-year-old male history of prior CABG, [place], CVA, bladder cancer. On Plavix. He believes his last tetanus was within the last 10 years. He was cutting foreman today at home when he accidentally cut the tip of his left small finger. He is right-hand dominant. This is the left small finger. Denies any other complaints. He continues to bleed is why he came in to be evaluated. Tetanus Immunization: 5-10 years Prior similar symptoms: No Recent Illness/Hospitalization: No PFSH PFSH Medical History Atherosclerosis of coronary artery of [place] heart without angina pectoris Bilateral carotid artery stenosis Bladder cancer Claudication in peripheral vascular disease CVA (cerebral vascular accident) (12/03/17) Essential (primary) hypertension Hyperlipidemia Lumbar pain with radiation down right leg Old myocardial infarction Prostate cancer screening PVD (peripheral vascular disease) Secondary pulmonary arterial hypertension Home Medications acetaminophen 325 mg tablet 650 mg (2 x 325 mg) PO Q6H PRN PRN Mild Pain (1-3)/Temp > 100.7 F 12/04/17 [Rx Last Taken Unknown] magnesium oxide 500 mg tablet 500 mg PO QDAY 01/27/18 [History Last Taken Unknown] collagen PO DAILY 02/07/21 [History Last Taken Unknown] diphenhydramine HCl 50 mg capsule 50 mg PO QHS 07/09/21 [History Last Taken Unknown] lysine 500 mg tablet (L-Lysine) 500 mg PO DAILY 07/09/21 [History Last Taken Unknown] nitroglycerin 0.4 mg sublingual tablet 0.4 mg sublingual PRN PRN Cardiac/Chest Pain #25 tabs 09/03/21 [Rx Last Taken Unknown] carvedilol 25 mg tablet (Coreg) 25 mg PO BID #120 tabs 02/06/22 [Rx Last Taken Unknown] hydrochlorothiazide 25 mg tablet 25 mg PO DAILY BLOOD PRESSURE #90 tabs 03/03/22 [Rx Last Taken Unknown] isosorbide mononitrate 60 mg tablet,extended release 24 hr 60 mg PO DAILY #90 tabs 03/03/22 [Rx Last Taken Unknown] losartan 100 mg tablet 100 mg PO QDAY #90 tabs 03/03/22 [Rx Last Taken Unknown] amlodipine 10 mg tablet 10 mg PO DAILY #90 tabs 03/19/22 [Rx Last Taken Unknown] clopidogrel 75 mg tablet 75 mg PO DAILY ANTI-PLATELET #90 tabs 04/11/22 [Rx Last Taken Unknown] Allergy/AdvReac Type Severity Reaction Status Date / Time aspirin Allergy Severe Other Verified 09/02/23 15:09 Penicillins [PCN] Allergy Rash Verified 09/02/23 15:09 Sulfa (Sulfonamide Allergy Rash Verified 09/02/23 15:09 Antibiotics) Family History Father Myocardial infarction CAD (coronary artery disease) Mother Diabetes Hypertension Cancer Arthritis Colon cancer Kidney disease CVA (cerebral vascular accident) Sister Skin cancer Surgical History H/O coronary artery bypass surgery (12/19/97) History of arthroscopic knee surgery History of bilateral cataract extraction History of coronary artery stent placement (11/22/07) History of left heart catheterization (08/10/13) History of shoulder surgery History of tonsillectomy Status post trigger finger release Social History Smoking Status: Former smoker how long ago did patient quit smokin years ago alcohol intake: never substance use type: does not use caffeine: Yes Type: carbonated beverages Number of servings: 1 what type of physical activity do you participate in: walking, bicycling and weight training frequency: 3-4 times per week ROS ROS ED ROS Narrative Denies recent illness. Review of Systems ROS Unobtainable: Denies due to encephalopathy Constitutional Constitutional ED: Denies chills or fever(s) Eyes Eyes: Denies blurry vision ENT ENT ED: Denies ear pain Cardiovascular Cardiovascular: Denies chest pain or palpitations Respiratory/Chest Respiratory/Chest: Denies cough or dyspnea Gastrointestinal Gastrointestinal: Denies abdominal pain Genitourinary Genitourinary ED: Denies dysuria or hematuria Musculoskeletal Musculoskeletal: Denies back pain or myalgias Integumentary Denies abscess or Abrasions Neurologic Neurologic: Denies headache(s) Psychiatric Psychiatric: Denies anxiety or depression Endocrine Endocrinology: Denies cold intolerance Hematologic/Lymphatic Hematologic/Lymphatic: Reports easy bleeding Allergic/Immunologic Allergic/Immunologic ED: Denies mouth swelling, tongue swelling or urticaria EXAM Physical Exam Narrative Exam Narrative: Well-appearing 77-year-old male. Vital signs stable afebrile. H EENT exam unremarkable. Lungs clear. Heart regular rhythm. Abdomen soft nontender. Moving all 4 extremities. Neurovascular intact. Left hand left small finger tip is a flap laceration at the oozing blood. Full range of motion. Neurovascular intact. No deformity. No infection. No foreign body. Const Vital Signs: 09/02/23 15:09 Temperature 97.3 F L Temperature Source Temporal Pulse Rate 74 Respiratory Rate 16 Blood Pressure 166/75 H Blood Pressure Mean 105 Pulse Ox 98 Oxygen Delivery Method Room Air Positive well nourished and well developed; Negative for obese, cachectic, contractures or unkempt General Appearance ED: well developed and NAD; Negative for unkempt, cachectic, contractures, cyanotic or diaphoretic Nutritional Appearance: Negative for cachectic or obese HEENT Reports moist mucous membranes normocephalic and atraumatic; Negative for trauma or tenderness Eyes PERRL and EOMs intact bilaterally General Eye ED: Negative for other Neck full ROM and supple General: Negative for tenderness Lymph Lymphatic: Negative for other Chest Wall inspection of chest normal and palpation of chest normal Chest: Negative for other Resp normal respiratory effort and clear to auscultation bilaterally Effort and Inspection: Negative for pain with movement Auscultation: Negative for rales, rhonchi or wheezes Cardio regular rate, regular rhythm, S1 normal heart sound, S2 normal heart sound and no murmurs Rate: Negative for bradycardia or tachycardic Rhythm: Negative for abnormal rhythm GI non-tender, non-distended and no masses Inspection: Negative for abdominal distention Auscultation: normoactive bowel sounds Palpation: soft; Negative for tender or guarding Extremity full ROM; Negative for normal to inspection Extremity Narrative: Flap laceration left small finger at the very tip. Oozing blood. Full range of motion. No foreign body. No infection. General Extremety ED: Negative for edema General Extremity: Negative for edema Neuro oriented x3, CN's II-XII intact bilaterally, moves all extremities and no focal motor deficits Sensorium / Orientation: alert, oriented to person, oriented to place and oriented to time; Negative for orientation impaired Motor Exam: strength 5/5 throughout Psych mental status grossly normal Appearance: Negative for unkempt Attitude: No agitated Mood & Affect: Negative for depressed, anxious or tearful Skin Skin Narrative: Mild fingertip flap laceration. General Skin Exam: Negative for petechiae Lesions: no lesions Rashes: no rashes Trauma: laceration; Negative for no lacerations or abrasions Procedures Lacerations Left small finger tip flap laceration repair:: Length: 0.79 in Depth: Skin Shape: Linear Laceration repair: Dermabond Comment: Left small fingertip flap laceration. Was able to get the bleeding stopped. Dermabond repaired dressed. [place] that would give him the best possibility of the flap taking and also stop the bleeding. Discharge Plan Triage Chief Complaint: Laceration ED Provider: Rangel Ritchie Dx/Rx/DC Orders Clinical Impression: Finger laceration Instructions: ED Laceration, Extremity: Skin Glue Prescriptions: No Action magnesium oxide 500 mg tablet 500 mg PO QDAY collagen PO DAILY carvedilol [Coreg] 25 mg tablet 25 mg PO BID Qty: 120 3RF Rx Instructions: must administer with a meal/food diphenhydramine HCl 50 mg capsule 50 mg PO QHS lysine [L-Lysine] 500 mg tablet 500 mg PO DAILY acetaminophen 325 MG tablet 650 mg PO Q6H PRN PRN (Reason: Mild Pain (1-3)/Temp > 100.7 F) 0RF nitroglycerin 0.4 mg tablet, sublingual 0.4 mg SUBLINGUAL PRN PRN (Reason: Cardiac/Chest Pain) Qty: 25 3RF Rx Instructions: Take one tablet sublingual every 5-15 minutes for chest pain do not exceed 3 tablets hydrochlorothiazide 25 mg tablet 25 mg PO DAILY Qty: 90 3RF isosorbide mononitrate 60 mg tablet extended release 24 hr 60 mg PO DAILY Qty: 90 3RF losartan 100 mg tablet 100 mg PO QDAY Qty: 90 3RF amlodipine 10 mg tablet 10 mg PO DAILY Qty: 90 3RF clopidogrel 75 mg tablet 75 mg PO DAILY Qty: 90 3RF Primary Care Provider: Evon Yanez Referrals: Evon Yanez MD [Primary Care Provider] - As Needed Activity Restrictions/Additional Instructions: If our dressing stays dry and clean and does not get soaked with blood you may leave it on for 4 days. Then you can take it off and just apply Band-Aid. If this rebleeds hold direct pressure, hold it straight up and ice if the bleeding does not stop you can return. Disposition Disposition: Home, Self Care
[2023-09-02] MEDS: Lidocaine 1% (20 ml mdv) 20 ML Vial 10 ML INFILT (15:56)
[2023-09-02 16:46] VITALS: RESP 18
== END 2023-09-02 16:46 | disposition home or self-care (01) ==
PROVIDERS: Emergency Provider Emergency Medicine; PCP Internal Medicine; Visit Provider Emergency Medicine
DX: S61.217A Laceration without foreign body of left little finger without damage to nail, initial encounter (principal); I25.10 Atherosclerotic heart disease of native coronary artery without angina pectoris; Z87.891 Personal history of nicotine dependence; I10 Essential (primary) hypertension; E78.5 Hyperlipidemia, unspecified; Z95.1 Presence of aortocoronary bypass graft; Z86.73 Personal history of transient ischemic attack (TIA), and cerebral infarction without residual deficits; I25.2 Old myocardial infarction; W26.8XXA Contact with other sharp object(s), not elsewhere classified, initial encounter
CPT/HCPCS: 12001; 99283